=== PATIENT | female | born 1935 | race Hispanic/Latino ===

== ENCOUNTER 2018-05-04 11:49 | Observation (INO) | payer OTHER, SELFPAY ==
[2018-05-04] VITALS (8 sets, daily range): BP systolic 157–186; BP diastolic 59–97; PULSE 61–80; RESP 14–22; TEMP 36.3–36.5; O2SAT 94–99; BMI 27.6
--- NOTE | 2018-05-04 12:18 | ED.DIZZY ---
HPI - Dizziness <EMILI Toro-BC - Last Filed: 05/04/18 17:20> General Chief Complaint: Dizziness Stated Complaint: dizziness, glf Time Seen by Provider: 05/04/18 12:07 Source: patient and family Mode of arrival: ambulatory Limitations: no limitations History of Present Illness HPI Narrative: Patient is an 83-year-old female with history of diastolic heart failure and hypertension who presents after an episode of weakness while getting out of bed today. She also has a history of stroke. She states she felt weak and dizzy and then slid to the floor. She denies any chest pain, shortness of breath, abdominal pain, fever or urinary symptoms. She pressed her Life Alert button and EMS brought her here. She denies any nausea vomiting or diarrhea. She states she took her normal medications this morning. Of note EMS told her she was in AFib does not recall a history of AFib. She denies any slurred speech, neurological changes other than her weakness or hitting her head. Related Data Home Medications Medication Instructions Recorded Confirmed ACETAMINOPHEN 325 mg PO Q4HP PRN #0 02/11/17 amlodipine [Norvasc] 5 mg PO QDAY #0 02/11/17 lidocaine [Lidoderm] 1 patch TOPICAL Q12H #0 02/11/17 oxybutynin chloride 5 mg PO HS #0 02/11/17 Previous Rx's Medication Instructions Recorded furosemide 20 mg PO QAM #30 tab 02/13/17 Allergies Allergy/AdvReac Type Severity Reaction Status Date / Time oxycodone [OXYCODONE] Allergy Intermediate DIZZINESS Verified 05/04/18 12:02 Review of Systems <ADELE Toro - Last Filed: 05/04/18 17:20> Review of Systems GENERAL: Elderly chronically ill-appearing female lying on stretcher HEAD: Atraumatic. Normocephalic. No temporal or scalp tenderness. EYES: Pupils equal round and reactive. Extraocular motions intact. No scleral icterus. No injection or drainage. ENT: Nose without bleeding, purulent drainage or septal hematoma. Throat without erythema, tonsillar hypertrophy or exudate. Uvula midline. Airway patent. NECK: Trachea midline. No JVD or lymphadenopathy. Supple, nontender, no meningeal signs. CARDIOVASCULAR: Irregular rhythm. Regular rate. RESPIRATORY: Diffuse crackles bilateral lower lobes. Breath sounds equal bilaterally. No wheezes, rales, or rhonchi. No increased respiratory effort. No cough noted. No accessory muscle use. GASTROINTESTINAL: Abdomen soft, non-tender, nondistended. No hepato-splenomegaly, or palpable masses. No guarding. EXTREMITIES: No clubbing, cyanosis, or edema. No joint tenderness, effusion, or edema noted. BACK: Nontender without deformity or crepitance. No flank tenderness. NEURO: AOx3. No slurred speech. Strength is equal upper and lower extremities bilaterally. SKIN: No rash or erythema. Exam <PRANAV Toro - Last Filed: 05/04/18 17:20> Initial Vital Signs Initial Vital Signs: Vital Signs Temperature 97.4 F L 05/04/18 11:57 Pulse Rate 77 05/04/18 11:57 Respiratory Rate 18 05/04/18 11:57 Blood Pressure 186/97 H 05/04/18 11:57 Pulse Oximetry 99 05/04/18 11:57 <Pato Hamilton DO - Last Filed: 05/04/18 18:09> Initial Vital Signs Initial Vital Signs: Vital Signs Temperature 97.4 F L 05/04/18 11:57 Pulse Rate 77 05/04/18 11:57 Respiratory Rate 18 05/04/18 11:57 Blood Pressure 186/97 H 05/04/18 11:57 Pulse Oximetry 99 05/04/18 11:57 Course <ADELE Toro - Last Filed: 05/04/18 17:20> Orders Ordered: ED Orders 05/04/18 11:50 EKG-12 Lead Stat 05/04/18 12:18 CT head/brain wo con Stat XR chest 1V Stat 05/04/18 12:20 B Type Natriuretic Peptide Stat Complete Blood Count AUTO DIFF Stat Comprehensive Metabolic Panel Stat Partial Thromboplastin Time Stat Procalcitonin Urgent Prothrombin Time INR Stat Troponin I Stat 05/04/18 12:40 UA Complete [Urinalysis and Microscopic] Stat Urine Culture Stat 05/04/18 16:55 Education, smoking cessation ONGOING 05/05/18 05:00 Complete Blood Count AUTO DIFF DAILY Comprehensive Metabolic Panel DAILY Procalcitonin Routine 05/05/18 08:00 Chest [XR chest 2V] Routine 05/06/18 05:00 Complete Blood Count AUTO DIFF DAILY Comprehensive Metabolic Panel DAILY 05/07/18 05:00 Complete Blood Count AUTO DIFF DAILY Comprehensive Metabolic Panel DAILY Acetaminophen (Tylenol) 650 mg PO Q6HR PRN PRN Reason: As Needed for Fever/Mild Pain Al Hydrox/Mg Hydrox/Simethicone (Maalox Plus) 30 ml PO Q6HR PRN PRN Reason: Dyspepsia Calcium Carbonate (Tums) 1,000 mg PO Q4HR PRN PRN Reason: Dyspepsia Cefuroxime Axetil (Ceftin) 500 mg PO BID WYATT Furosemide (Lasix) 20 mg PO 0800,1700 WYATT Heparin Sodium (Porcine) (Heparin) 5,000 unit SUBCUT BID WYATT Lisinopril (Zestril) 2.5 mg PO BID WYATT Ondansetron HCl (Zofran Odt) 4 mg PO Q8HR PRN PRN Reason: Nausea And Vomiting Ondansetron HCl (Zofran) 4 mg IV Q8HR PRN PRN Reason: Nausea And Vomiting Discontinued Medications Hydrocodone Bitart/Acetaminophen ([place] 5/325) 2 tab PO NOW ONE Stop: 05/04/18 13:25 Last Admin: 05/04/18 13:37 Dose: 2 tab Furosemide (Lasix) 20 mg IV NOW ONE Stop: 05/04/18 14:31 Last Admin: 05/04/18 14:43 Dose: 20 mg Reevaluation(s) Reevaluation #1: Discussed the reason for delayed imaging. Patient has family at bedside. She is in no apparent distress. Patient is requesting home dose of pain medication for arthritis. Dose verified in previous records. Time: 13:15 Reevaluation #2: Discussed at length with patient and daughter that AFib with found on her history. Time: 14:00 Reevaluation #3: Discussed at length with patient findings on UA, chest x-ray, elevated BNP. Patient is currently on stretcher with no acute distress. Family is at bedside. Discussed dose of Lasix given elevated BNP. Time: 14:30 Consultations Consultation #1: Spoke with Dr. Ozuna regarding admission given elevated BNP, concern for UTI and pneumonia. Dr. Ozuna kindly accepted the patient for admission. Dr. Ozuna stated that he would order antibiotics for this patient and instructed me to hold off on treating her pneumonia, UTI at this point time. Time: 15:00 Vital Signs - 8 hr 05/04/18 11:57 05/04/18 13:11 05/04/18 15:30 Temperature 97.4 F L Pulse Rate 77 80 77 Respiratory Rate 18 16 22 Blood Pressure 186/97 H Blood Pressure [Right Arm] 165/83 H 180/65 H Pulse Oximetry 99 98 96 05/04/18 16:33 05/04/18 17:24 Temperature Pulse Rate 62 65 Respiratory Rate 18 14 Blood Pressure 166/59 H Blood Pressure [Right Arm] 157/60 H Pulse Oximetry 96 94 <Pato Hamilton, DO - Last Filed: 05/04/18 18:09> Orders Ordered: ED Orders 05/04/18 11:50 EKG-12 Lead Stat 05/04/18 12:18 CT head/brain wo con Stat XR chest 1V Stat 05/04/18 12:20 B Type Natriuretic Peptide Stat Complete Blood Count AUTO DIFF Stat Comprehensive Metabolic Panel Stat Partial Thromboplastin Time Stat Procalcitonin Urgent Prothrombin Time INR Stat Troponin I Stat 05/04/18 12:40 UA Complete [Urinalysis and Microscopic] Stat Urine Culture Stat 05/04/18 16:55 Education, smoking cessation ONGOING 05/05/18 05:00 Complete Blood Count AUTO DIFF DAILY Comprehensive Metabolic Panel DAILY Procalcitonin Routine 05/05/18 08:00 Chest [XR chest 2V] Routine 05/06/18 05:00 Complete Blood Count AUTO DIFF DAILY Comprehensive Metabolic Panel DAILY 05/07/18 05:00 Complete Blood Count AUTO DIFF DAILY Comprehensive Metabolic Panel DAILY Acetaminophen (Tylenol) 650 mg PO Q6HR PRN PRN Reason: As Needed for Fever/Mild Pain Al Hydrox/Mg Hydrox/Simethicone (Maalox Plus) 30 ml PO Q6HR PRN PRN Reason: Dyspepsia Calcium Carbonate (Tums) 1,000 mg PO Q4HR PRN PRN Reason: Dyspepsia Cefuroxime Axetil (Ceftin) 500 mg PO BID WYATT Furosemide (Lasix) 20 mg PO 0800,1700 WYATT Heparin Sodium (Porcine) (Heparin) 5,000 unit SUBCUT BID WYATT Lisinopril (Zestril) 2.5 mg PO BID WYATT Ondansetron HCl (Zofran Odt) 4 mg PO Q8HR PRN PRN Reason: Nausea And Vomiting Ondansetron HCl (Zofran) 4 mg IV Q8HR PRN PRN Reason: Nausea And Vomiting Discontinued Medications Hydrocodone Bitart/Acetaminophen ([place] 5/325) 2 tab PO NOW ONE Stop: 05/04/18 13:25 Last Admin: 05/04/18 13:37 Dose: 2 tab Furosemide (Lasix) 20 mg IV NOW ONE Stop: 05/04/18 14:31 Last Admin: 05/04/18 14:43 Dose: 20 mg Vital Signs - 8 hr 05/04/18 11:57 05/04/18 13:11 05/04/18 15:30 Temperature 97.4 F L Pulse Rate 77 80 77 Respiratory Rate 18 16 22 Blood Pressure 186/97 H Blood Pressure [Right Arm] 165/83 H 180/65 H Pulse Oximetry 99 98 96 05/04/18 16:33 05/04/18 17:24 Temperature Pulse Rate 62 65 Respiratory Rate 18 14 Blood Pressure 166/59 H Blood Pressure [Right Arm] 157/60 H Pulse Oximetry 96 94 MDM - Dizziness <EMILI Toro-BC - Last Filed: 05/04/18 17:20> Lab Data Result diagrams: 05/04/18 12:20 05/04/18 12:20 Lab Results 05/04/18 05/04/18 05/04/18 Range/Units 12:20 12:20 12:20 WBC 6.8 (4.5-11.0) X10^3/uL RBC 3.28 L (4.0-5.2) X10^6/uL Hgb 10.4 L (12.0-16.0) g/dL Hct 31.7 L (36-46) % MCV 96.6 (80-100) fL MCH 31.6 (26-34) PG MCHC 32.7 (30-36) % RDW 14.4 (11.6-14.8) % Plt Count 208 (150-400) X10^3/uL Neut % (Auto) 68.3 (50-75) % Lymph % (Auto) 19.0 L (25-40) % [place] % (Auto) 10.0 (3-14) % Eos % (Auto) 1.8 L (2-4) % Baso % (Auto) 0.9 (0-2) % Neut # (Auto) 4600 (3053-8623) /uL PT 12.1 (10.1-12.7) SECONDS INR 1.1 (0.9-1.3) APTT 34 (26.4-36.2) SECONDS Sodium (137-145) mmol/L Potassium (3.4-5.1) mmol/L Chloride (98-107) mmol/L Carbon Dioxide (22-32) mmol/L BUN (7-17) mg/dL Creatinine (0.52-1.04) mg/dL Estimated GFR (>60) mL/min BUN/Creatinine Ratio (6-22) Glucose (80-110) mg/dL Calcium (8.4-10.2) mg/dL Total Bilirubin (0.2-1.3) mg/dL AST (14-36) IU/L ALT (9-52) IU/L Alkaline Phosphatase (38-126) U/L Troponin I 0.025 (0.01-0.034) ng/mL B-Natriuretic Peptide (<100) Total Protein (6.3-8.2) g/dL Albumin (3.5-5.0) g/dL Globulin (1.7-4.1) g/dL Albumin/Globulin Ratio (1.0-2.8) Procalcitonin (<0.5) ng/mL Urine Color Urine Appearance Urine pH (4.5-8.0) Ur Specific Martin (1.000-1.035) Urine Protein (Negative) Urine Glucose (UA) (Normal) g/dL Urine Ketones (NEGATIVE) Urine Occult Blood (Negative) Urine Nitrate (Negative) Urine Bilirubin (NEGATIVE) Urine Urobilinogen (0.2) E.U./dL Ur Leukocyte Esterase (NEGATIVE) Urine RBC (0-5/HPF) Urine WBC (0-5/HPF) Ur Squamous Epith Cells Ur Renal Epithelial Cell Urine Bacteria (None) Ur Culture Indicated? Micro UA Comment 05/04/18 05/04/18 05/04/18 Range/Units 12:20 12:20 12:20 WBC (4.5-11.0) X10^3/uL RBC (4.0-5.2) X10^6/uL Hgb (12.0-16.0) g/dL Hct (36-46) % MCV (80-100) fL MCH (26-34) PG MCHC (30-36) % RDW (11.6-14.8) % Plt Count (150-400) X10^3/uL Neut % (Auto) (50-75) % Lymph % (Auto) (25-40) % [place] % (Auto) (3-14) % Eos % (Auto) (2-4) % Baso % (Auto) (0-2) % Neut # (Auto) (0452-5951) /uL PT (10.1-12.7) SECONDS INR (0.9-1.3) APTT (26.4-36.2) SECONDS Sodium 139 (137-145) mmol/L Potassium 3.9 (3.4-5.1) mmol/L Chloride 104 (98-107) mmol/L Carbon Dioxide 23 (22-32) mmol/L BUN 33 H (7-17) mg/dL Creatinine 1.70 H (0.52-1.04) mg/dL Estimated GFR 28.6 L (>60) mL/min BUN/Creatinine Ratio 19.4 (6-22) Glucose 96 (80-110) mg/dL Calcium 10.6 H (8.4-10.2) mg/dL Total Bilirubin 0.8 (0.2-1.3) mg/dL AST 23 (14-36) IU/L ALT 13 (9-52) IU/L Alkaline Phosphatase 88 (38-126) U/L Troponin I (0.01-0.034) ng/mL B-Natriuretic Peptide 1410.0 H (<100) Total Protein 7.1 (6.3-8.2) g/dL Albumin 4.1 (3.5-5.0) g/dL Globulin 3.0 (1.7-4.1) g/dL Albumin/Globulin Ratio 1.4 (1.0-2.8) Procalcitonin < 0.05 (<0.5) ng/mL Urine Color Urine Appearance Urine pH (4.5-8.0) Ur Specific Martin (1.000-1.035) Urine Protein (Negative) Urine Glucose (UA) (Normal) g/dL Urine Ketones (NEGATIVE) Urine Occult Blood (Negative) Urine Nitrate (Negative) Urine Bilirubin (NEGATIVE) Urine Urobilinogen (0.2) E.U./dL Ur Leukocyte Esterase (NEGATIVE) Urine RBC (0-5/HPF) Urine WBC (0-5/HPF) Ur Squamous Epith Cells Ur Renal Epithelial Cell Urine Bacteria (None) Ur Culture Indicated? Micro UA Comment 05/04/18 Range/Units 12:40 WBC (4.5-11.0) X10^3/uL RBC (4.0-5.2) X10^6/uL Hgb (12.0-16.0) g/dL Hct (36-46) % MCV (80-100) fL MCH (26-34) PG MCHC (30-36) % RDW (11.6-14.8) % Plt Count (150-400) X10^3/uL Neut % (Auto) (50-75) % Lymph % (Auto) (25-40) % [place] % (Auto) (3-14) % Eos % (Auto) (2-4) % Baso % (Auto) (0-2) % Neut # (Auto) (8150-8071) /uL PT (10.1-12.7) SECONDS INR (0.9-1.3) APTT (26.4-36.2) SECONDS Sodium (137-145) mmol/L Potassium (3.4-5.1) mmol/L Chloride (98-107) mmol/L Carbon Dioxide (22-32) mmol/L BUN (7-17) mg/dL Creatinine (0.52-1.04) mg/dL Estimated GFR (>60) mL/min BUN/Creatinine Ratio (6-22) Glucose (80-110) mg/dL Calcium (8.4-10.2) mg/dL Total Bilirubin (0.2-1.3) mg/dL AST (14-36) IU/L ALT (9-52) IU/L Alkaline Phosphatase (38-126) U/L Troponin I (0.01-0.034) ng/mL B-Natriuretic Peptide (<100) Total Protein (6.3-8.2) g/dL Albumin (3.5-5.0) g/dL Globulin (1.7-4.1) g/dL Albumin/Globulin Ratio (1.0-2.8) Procalcitonin (<0.5) ng/mL Urine Color Yellow Urine Appearance Slightly cloudy Urine pH 6.0 (4.5-8.0) Ur Specific Martin 1.010 (1.000-1.035) Urine Protein 2+ H (Negative) Urine Glucose (UA) Negative (Normal) g/dL Urine Ketones Negative (NEGATIVE) Urine Occult Blood Trace-intact (Negative) Urine Nitrate Negative (Negative) Urine Bilirubin Negative (NEGATIVE) Urine Urobilinogen 0.2 (0.2) E.U./dL Ur Leukocyte Esterase 1+ H (NEGATIVE) Urine RBC None seen (0-5/HPF) Urine WBC 1-5/hpf (0-5/HPF) Ur Squamous Epith Cells 1-5 /hpf Ur Renal Epithelial Cell 1-5/hpf Urine Bacteria Many (>30) H (None) Ur Culture Indicated? Specimen cultured Micro UA Comment Not Reportable Imaging Data CT scan - head: Radiologist's impression: [address] [address] [address] Scan Report Signed Patient: Gayathri Becerra CMR#: [id number] : 4Acct:[id number] Age/Sex: 83 / FDate of Service: 05/04/18 Loc: ED Accession Number: [id number] Procedure: CT head/brain wo con Ordering Provider: Shira Smith PROCEDURE: CT HEAD/BRAIN WO CON INDICATIONS: dizziness TECHNIQUE: Noncontrast 4.5 mm thick angled axial sections acquired from the foramen magnum to the vertex, with coronal and sagittal reformats. For radiation dose reduction, the following was used: automated exposure control, adjustment of mA and/or kV according to patient size. COMPARISON: [facility], CT, HEAD WITHOUT CONTRAST, 11/30/2016, 15:32. FINDINGS: Image quality: Excellent. CSF spaces: Basal cisterns are patent. No extra-axial fluid collections. The ventricles are symmetric in size and shape. Brain: No intracranial bleeds or masses. There is low density within the inferior pasha. Moderate chronic left posterolateral frontal lobe infarct is unchanged. There is cerebral volume loss for age, with resultant ventricular and sulcal prominence. There are periventricular and deep white matter chronic small vessel ischemic changes. There is intracranial internal carotid artery atherosclerosis. Skull and face: Calvarium and visualized facial bones appear intact, without suspicious lesions. Sinuses: Visualized sinuses and mastoids are clear. IMPRESSION: 1. Low-density within the inferior pasha, which could indicate artifact, or a subacute infarct. 2. Chronic left frontal lobe infarct. 3. No acute intracranial abnormality. Dictated by: Gasper Greene M.D. on 05/04/2018 at 14:18 Approved by: Gasper Greene M.D. on 05/04/2018 at 14:20 Chest x-ray: Radiologist's impression: [address] [address] XRay Report Signed Patient: Gayathri Becerra CMR#: [id number] : 4Acct:[id number] Age/Sex: 83 / FDate of Service: 05/04/18 Loc: ED Accession Number: [id number] Procedure: XR chest 1V Ordering Provider: Shira Smith PROCEDURE: XR CHEST 1V INDICATIONS: weakness TECHNIQUE: One view of the chest was acquired. COMPARISON: [facility], CHEST 1 VIEW, 02/11/2017, 17:15. FINDINGS: Surgical changes and devices: None. Lungs and pleura: No pleural effusions or pneumothorax. There is mild patchy opacity within the left lung base. Mediastinum: Mediastinal contours appear normal. Heart size is enlarged. Bones and chest wall: No suspicious bony lesions. Overlying soft tissues appear unremarkable. IMPRESSION: Mild left lung base pneumonia. Follow up plain films of the chest are recommended to ensure resolution, and to exclude underlying or central malignancy. Dictated by: Gasper Greene M.D. on 05/04/2018 at 14:11 Approved by: Gasper Greene M.D. on 05/04/2018 at 14:12 [facility] Narrative Medical decision making narrative: Patient presents with acute onset of weakness this morning. A CBC, CMP and UA were performed. A cardiac workup was also done. Patient was found to have an elevated BNP and crackles in her left lower lobe, indicating exacerbation her failure. She was also found to have pneumonia on chest x-ray as well as a UTI. The she was admitted to observation status with telemetry under Dr Ozuna. <Pato Hamilton DO - Last Filed: 05/04/18 18:09> Lab Data Lab Results 05/04/18 05/04/18 05/04/18 Range/Units 12:20 12:20 12:20 WBC 6.8 (4.5-11.0) X10^3/uL RBC 3.28 L (4.0-5.2) X10^6/uL Hgb 10.4 L (12.0-16.0) g/dL Hct 31.7 L (36-46) % MCV 96.6 (80-100) fL MCH 31.6 (26-34) PG MCHC 32.7 (30-36) % RDW 14.4 (11.6-14.8) % Plt Count 208 (150-400) X10^3/uL Neut % (Auto) 68.3 (50-75) % Lymph % (Auto) 19.0 L (25-40) % [place] % (Auto) 10.0 (3-14) % Eos % (Auto) 1.8 L (2-4) % Baso % (Auto) 0.9 (0-2) % Neut # (Auto) 4600 (2718-0501) /uL PT 12.1 (10.1-12.7) SECONDS INR 1.1 (0.9-1.3) APTT 34 (26.4-36.2) SECONDS Sodium (137-145) mmol/L Potassium (3.4-5.1) mmol/L Chloride (98-107) mmol/L Carbon Dioxide (22-32) mmol/L BUN (7-17) mg/dL Creatinine (0.52-1.04) mg/dL Estimated GFR (>60) mL/min BUN/Creatinine Ratio (6-22) Glucose (80-110) mg/dL Calcium (8.4-10.2) mg/dL Total Bilirubin (0.2-1.3) mg/dL AST (14-36) IU/L ALT (9-52) IU/L Alkaline Phosphatase (38-126) U/L Troponin I 0.025 (0.01-0.034) ng/mL B-Natriuretic Peptide (<100) Total Protein (6.3-8.2) g/dL Albumin (3.5-5.0) g/dL Globulin (1.7-4.1) g/dL Albumin/Globulin Ratio (1.0-2.8) Procalcitonin (<0.5) ng/mL Urine Color Urine Appearance Urine pH (4.5-8.0) Ur Specific Martin (1.000-1.035) Urine Protein (Negative) Urine Glucose (UA) (Normal) g/dL Urine Ketones (NEGATIVE) Urine Occult Blood (Negative) Urine Nitrate (Negative) Urine Bilirubin (NEGATIVE) Urine Urobilinogen (0.2) E.U./dL Ur Leukocyte Esterase (NEGATIVE) Urine RBC (0-5/HPF) Urine WBC (0-5/HPF) Ur Squamous Epith Cells Ur Renal Epithelial Cell Urine Bacteria (None) Ur Culture Indicated? Micro UA Comment 05/04/18 05/04/18 05/04/18 Range/Units 12:20 12:20 12:20 WBC (4.5-11.0) X10^3/uL RBC (4.0-5.2) X10^6/uL Hgb (12.0-16.0) g/dL Hct (36-46) % MCV (80-100) fL MCH (26-34) PG MCHC (30-36) % RDW (11.6-14.8) % Plt Count (150-400) X10^3/uL Neut % (Auto) (50-75) % Lymph % (Auto) (25-40) % [place] % (Auto) (3-14) % Eos % (Auto) (2-4) % Baso % (Auto) (0-2) % Neut # (Auto) (1686-3060) /uL PT (10.1-12.7) SECONDS INR (0.9-1.3) APTT (26.4-36.2) SECONDS Sodium 139 (137-145) mmol/L Potassium 3.9 (3.4-5.1) mmol/L Chloride 104 (98-107) mmol/L Carbon Dioxide 23 (22-32) mmol/L BUN 33 H (7-17) mg/dL Creatinine 1.70 H (0.52-1.04) mg/dL Estimated GFR 28.6 L (>60) mL/min BUN/Creatinine Ratio 19.4 (6-22) Glucose 96 (80-110) mg/dL Calcium 10.6 H (8.4-10.2) mg/dL Total Bilirubin 0.8 (0.2-1.3) mg/dL AST 23 (14-36) IU/L ALT 13 (9-52) IU/L Alkaline Phosphatase 88 (38-126) U/L Troponin I (0.01-0.034) ng/mL B-Natriuretic Peptide 1410.0 H (<100) Total Protein 7.1 (6.3-8.2) g/dL Albumin 4.1 (3.5-5.0) g/dL Globulin 3.0 (1.7-4.1) g/dL Albumin/Globulin Ratio 1.4 (1.0-2.8) Procalcitonin < 0.05 (<0.5) ng/mL Urine Color Urine Appearance Urine pH (4.5-8.0) Ur Specific Martin (1.000-1.035) Urine Protein (Negative) Urine Glucose (UA) (Normal) g/dL Urine Ketones (NEGATIVE) Urine Occult Blood (Negative) Urine Nitrate (Negative) Urine Bilirubin (NEGATIVE) Urine Urobilinogen (0.2) E.U./dL Ur Leukocyte Esterase (NEGATIVE) Urine RBC (0-5/HPF) Urine WBC (0-5/HPF) Ur Squamous Epith Cells Ur Renal Epithelial Cell Urine Bacteria (None) Ur Culture Indicated? Micro UA Comment 05/04/ Range/Units 12:40 WBC (4.5-11.0) X10^3/uL RBC (4.0-5.2) X10^6/uL Hgb (12.0-16.0) g/dL Hct (36-46) % MCV (80-100) fL MCH (26-34) PG MCHC (30-36) % RDW (11.6-14.8) % Plt Count (150-400) X10^3/uL Neut % (Auto) (50-75) % Lymph % (Auto) (25-40) % [place] % (Auto) (3-14) % Eos % (Auto) (2-4) % Baso % (Auto) (0-2) % Neut # (Auto) (2571-0854) /uL PT (10.1-12.7) SECONDS INR (0.9-1.3) APTT (26.4-36.2) SECONDS Sodium (137-145) mmol/L Potassium (3.4-5.1) mmol/L Chloride (98-107) mmol/L Carbon Dioxide (22-32) mmol/L BUN (7-17) mg/dL Creatinine (0.52-1.04) mg/dL Estimated GFR (>60) mL/min BUN/Creatinine Ratio (6-22) Glucose (80-110) mg/dL Calcium (8.4-10.2) mg/dL Total Bilirubin (0.2-1.3) mg/dL AST (14-36) IU/L ALT (9-52) IU/L Alkaline Phosphatase (38-126) U/L Troponin I (0.01-0.034) ng/mL B-Natriuretic Peptide (<100) Total Protein (6.3-8.2) g/dL Albumin (3.5-5.0) g/dL Globulin (1.7-4.1) g/dL Albumin/Globulin Ratio (1.0-2.8) Procalcitonin (<0.5) ng/mL Urine Color Yellow Urine Appearance Slightly cloudy Urine pH 6.0 (4.5-8.0) Ur Specific Martin 1.010 (1.000-1.035) Urine Protein 2+ H (Negative) Urine Glucose (UA) Negative (Normal) g/dL Urine Ketones Negative (NEGATIVE) Urine Occult Blood Trace-intact (Negative) Urine Nitrate Negative (Negative) Urine Bilirubin Negative (NEGATIVE) Urine Urobilinogen 0.2 (0.2) E.U./dL Ur Leukocyte Esterase 1+ H (NEGATIVE) Urine RBC None seen (0-5/HPF) Urine WBC 1-5/hpf (0-5/HPF) Ur Squamous Epith Cells 1-5 /hpf Ur Renal Epithelial Cell 1-5/hpf Urine Bacteria Many (>30) H (None) Ur Culture Indicated? Specimen cultured Micro UA Comment Not Reportable Discharge Plan Departure Patient Disposition: Admitted as Observation Clinical Impression: Acute exacerbation of CHF (congestive heart failure), Acute UTI, Pneumonia Discharge Date/Time: 05/04/18 17:25 Interventions: ED Discharge Assessment Last Done: 05/04/18 17:24 Admit Date/Time: 05/04/18 15:10 Admit Provider: Isidro Ozuna <Pato Hamilton DO - Last Filed: 05/04/18 18:09> Cosign ED Attending Cosignature Attestation: I was immediately available in the department for consultation. Documentation has been reviewed. I agree with assessment and plan.
--- NOTE | 2018-05-04 12:23 | ED_ITS ---
HPI - Dizziness <EMILI Toro-BC - Last Filed: 05/04/18 17:20> General Chief Complaint: Dizziness Stated Complaint: dizziness, glf Time Seen by Provider: 05/04/18 12:07 Source: patient and family Mode of arrival: ambulatory Limitations: no limitations History of Present Illness HPI Narrative: Patient is an 83-year-old female with history of diastolic heart failure and hypertension who presents after an episode of weakness while getting out of bed today. She also has a history of stroke. She states she felt weak and dizzy and then slid to the floor. She denies any chest pain, shortness of breath, abdominal pain, fever or urinary symptoms. She pressed her Life Alert button and EMS brought her here. She denies any nausea vomiting or diarrhea. She states she took her normal medications this morning. Of note EMS told her she was in AFib does not recall a history of AFib. She denies any slurred speech, neurological changes other than her weakness or hitting her head. Related Data Home Medications Medication Instructions Recorded Confirmed ACETAMINOPHEN 325 mg PO Q4HP PRN #0 02/11/17 amlodipine [Norvasc] 5 mg PO QDAY #0 02/11/17 lidocaine [Lidoderm] 1 patch TOPICAL Q12H #0 02/11/17 oxybutynin chloride 5 mg PO HS #0 02/11/17 Previous Rx's Medication Instructions Recorded furosemide 20 mg PO QAM #30 tab 02/13/17 Allergies Allergy/AdvReac Type Severity Reaction Status Date / Time oxycodone [OXYCODONE] Allergy Intermediate DIZZINESS Verified 05/04/18 12:02 Review of Systems <ADELE Toro - Last Filed: 05/04/18 17:20> Review of Systems GENERAL: Elderly chronically ill-appearing female lying on stretcher HEAD: Atraumatic. Normocephalic. No temporal or scalp tenderness. EYES: Pupils equal round and reactive. Extraocular motions intact. No scleral icterus. No injection or drainage. ENT: Nose without bleeding, purulent drainage or septal hematoma. Throat without erythema, tonsillar hypertrophy or exudate. Uvula midline. Airway patent. NECK: Trachea midline. No JVD or lymphadenopathy. Supple, nontender, no meningeal signs. CARDIOVASCULAR: Irregular rhythm. Regular rate. RESPIRATORY: Diffuse crackles bilateral lower lobes. Breath sounds equal bilaterally. No wheezes, rales, or rhonchi. No increased respiratory effort. No cough noted. No accessory muscle use. GASTROINTESTINAL: Abdomen soft, non-tender, nondistended. No hepato-splenomegaly , or palpable masses. No guarding. EXTREMITIES: No clubbing, cyanosis, or edema. No joint tenderness, effusion, or edema noted. BACK: Nontender without deformity or crepitance. No flank tenderness. NEURO: AOx3. No slurred speech. Strength is equal upper and lower extremities bilaterally. SKIN: No rash or erythema. Exam <PRANAV Toro - Last Filed: 05/04/18 17:20> Initial Vital Signs Initial Vital Signs: Vital Signs Temperature 97.4 F L 05/04/18 11:57 Pulse Rate 77 05/04/18 11:57 Respiratory Rate 18 05/04/18 11:57 Blood Pressure 186/97 H 05/04/18 11:57 Pulse Oximetry 99 05/04/18 11:57 <Pato Hamilton DO - Last Filed: 05/04/18 18:09> Initial Vital Signs Initial Vital Signs: Vital Signs Temperature 97.4 F L 05/04/18 11:57 Pulse Rate 77 05/04/18 11:57 Respiratory Rate 18 05/04/18 11:57 Blood Pressure 186/97 H 05/04/18 11:57 Pulse Oximetry 99 05/04/18 11:57 Course <ADELE Toro - Last Filed: 05/04/18 17:20> Orders Ordered: ED Orders 05/04/18 11:50 EKG-12 Lead Stat 05/04/18 12:18 CT head/brain wo con Stat XR chest 1V Stat 05/04/18 12:20 B Type Natriuretic Peptide Stat Complete Blood Count AUTO DIFF Stat Comprehensive Metabolic Panel Stat Partial Thromboplastin Time Stat Procalcitonin Urgent Prothrombin Time INR Stat Troponin I Stat 05/04/18 12:40 UA Complete [Urinalysis and Microscopic] Stat Urine Culture Stat 05/04/18 16:55 Education, smoking cessation ONGOING 05/05/18 05:00 Complete Blood Count AUTO DIFF DAILY Comprehensive Metabolic Panel DAILY Procalcitonin Routine 05/05/18 08:00 Chest [XR chest 2V] Routine 05/06/18 05:00 Complete Blood Count AUTO DIFF DAILY Comprehensive Metabolic Panel DAILY 05/07/18 05:00 Complete Blood Count AUTO DIFF DAILY Comprehensive Metabolic Panel DAILY Acetaminophen (Tylenol) 650 mg PO Q6HR PRN PRN Reason: As Needed for Fever/Mild Pain Al Hydrox/Mg Hydrox/Simethicone (Maalox Plus) 30 ml PO Q6HR PRN PRN Reason: Dyspepsia Calcium Carbonate (Tums) 1,000 mg PO Q4HR PRN PRN Reason: Dyspepsia Cefuroxime Axetil (Ceftin) 500 mg PO BID WYATT Furosemide (Lasix) 20 mg PO 0800,1700 WYATT Heparin Sodium (Porcine) (Heparin) 5,000 unit SUBCUT BID WYATT Lisinopril (Zestril) 2.5 mg PO BID WYATT Ondansetron HCl (Zofran Odt) 4 mg PO Q8HR PRN PRN Reason: Nausea And Vomiting Ondansetron HCl (Zofran) 4 mg IV Q8HR PRN PRN Reason: Nausea And Vomiting Discontinued Medications Hydrocodone Bitart/Acetaminophen ([place] 5/325) 2 tab PO NOW ONE Stop: 05/04/18 13:25 Last Admin: 05/04/18 13:37 Dose: 2 tab Furosemide (Lasix) 20 mg IV NOW ONE Stop: 05/04/18 14:31 Last Admin: 05/04/18 14:43 Dose: 20 mg Reevaluation(s) Reevaluation #1: Discussed the reason for delayed imaging. Patient has family at bedside. She is in no apparent distress. Patient is requesting home dose of pain medication for arthritis. Dose verified in previous records. Time: 13:15 Reevaluation #2: Discussed at length with patient and daughter that AFib with found on her history. Time: 14:00 Reevaluation #3: Discussed at length with patient findings on UA, chest x-ray, elevated BNP. Patient is currently on stretcher with no acute distress. Family is at bedside. Discussed dose of Lasix given elevated BNP. Time: 14:30 Consultations Consultation #1: Spoke with Dr. Ozuna regarding admission given elevated BNP, concern for UTI and pneumonia. Dr. Ozuna kindly accepted the patient for admission. Dr. Ozuna stated that he would order antibiotics for this patient and instructed me to hold off on treating her pneumonia, UTI at this point time. Time: 15:00 Vital Signs - 8 hr 05/04/18 11:57 05/04/18 13:11 05/04/18 15:30 Temperature 97.4 F L Pulse Rate 77 80 77 Respiratory Rate 18 16 22 Blood Pressure 186/97 H Blood Pressure [Right Arm] 165/83 H 180/65 H Pulse Oximetry 99 98 96 05/04/18 16:33 05/04/18 17:24 Temperature Pulse Rate 62 65 Respiratory Rate 18 14 Blood Pressure 166/59 H Blood Pressure [Right Arm] 157/60 H Pulse Oximetry 96 94 <Pato Hamilton, DO - Last Filed: 05/04/18 18:09> Orders Ordered: ED Orders 05/04/18 11:50 EKG-12 Lead Stat 05/04/18 12:18 CT head/brain wo con Stat XR chest 1V Stat 05/04/18 12:20 B Type Natriuretic Peptide Stat Complete Blood Count AUTO DIFF Stat Comprehensive Metabolic Panel Stat Partial Thromboplastin Time Stat Procalcitonin Urgent Prothrombin Time INR Stat Troponin I Stat 05/04/18 12:40 UA Complete [Urinalysis and Microscopic] Stat Urine Culture Stat 05/04/18 16:55 Education, smoking cessation ONGOING 05/05/18 05:00 Complete Blood Count AUTO DIFF DAILY Comprehensive Metabolic Panel DAILY Procalcitonin Routine 05/05/18 08:00 Chest [XR chest 2V] Routine 05/06/18 05:00 Complete Blood Count AUTO DIFF DAILY Comprehensive Metabolic Panel DAILY 05/07/18 05:00 Complete Blood Count AUTO DIFF DAILY Comprehensive Metabolic Panel DAILY Acetaminophen (Tylenol) 650 mg PO Q6HR PRN PRN Reason: As Needed for Fever/Mild Pain Al Hydrox/Mg Hydrox/Simethicone (Maalox Plus) 30 ml PO Q6HR PRN PRN Reason: Dyspepsia Calcium Carbonate (Tums) 1,000 mg PO Q4HR PRN PRN Reason: Dyspepsia Cefuroxime Axetil (Ceftin) 500 mg PO BID WYATT Furosemide (Lasix) 20 mg PO 0800,1700 WYATT Heparin Sodium (Porcine) (Heparin) 5,000 unit SUBCUT BID WYATT Lisinopril (Zestril) 2.5 mg PO BID WYATT Ondansetron HCl (Zofran Odt) 4 mg PO Q8HR PRN PRN Reason: Nausea And Vomiting Ondansetron HCl (Zofran) 4 mg IV Q8HR PRN PRN Reason: Nausea And Vomiting Discontinued Medications Hydrocodone Bitart/Acetaminophen ([place] 5/325) 2 tab PO NOW ONE Stop: 05/04/18 13:25 Last Admin: 05/04/18 13:37 Dose: 2 tab Furosemide (Lasix) 20 mg IV NOW ONE Stop: 05/04/18 14:31 Last Admin: 05/04/18 14:43 Dose: 20 mg Vital Signs - 8 hr 05/04/18 11:57 05/04/18 13:11 05/04/18 15:30 Temperature 97.4 F L Pulse Rate 77 80 77 Respiratory Rate 18 16 22 Blood Pressure 186/97 H Blood Pressure [Right Arm] 165/83 H 180/65 H Pulse Oximetry 99 98 96 05/04/18 16:33 05/04/18 17:24 Temperature Pulse Rate 62 65 Respiratory Rate 18 14 Blood Pressure 166/59 H Blood Pressure [Right Arm] 157/60 H Pulse Oximetry 96 94 MDM - Dizziness <EMILI Toro-BC - Last Filed: 05/04/18 17:20> Lab Data Result diagrams: 05/04/18 12:20 05/04/18 12:20 Lab Results 05/04/18 05/04/18 05/04/18 Range/Units 12:20 12:20 12:20 WBC 6.8 (4.5-11.0) X10^3/uL RBC 3.28 L (4.0-5.2) X10^6/uL Hgb 10.4 L (12.0-16.0) g/dL Hct 31.7 L (36-46) % MCV 96.6 (80-100) fL MCH 31.6 (26-34) PG MCHC 32.7 (30-36) % RDW 14.4 (11.6-14.8) % Plt Count 208 (150-400) X10^3/uL Neut % (Auto) 68.3 (50-75) % Lymph % (Auto) 19.0 L (25-40) % [place] % (Auto) 10.0 (3-14) % Eos % (Auto) 1.8 L (2-4) % Baso % (Auto) 0.9 (0-2) % Neut # (Auto) 4600 (4505-3007) /uL PT 12.1 (10.1-12.7) SECONDS INR 1.1 (0.9-1.3) APTT 34 (26.4-36.2) SECONDS Sodium (137-145) mmol/L Potassium (3.4-5.1) mmol/L Chloride (98-107) mmol/L Carbon Dioxide (22-32) mmol/L BUN (7-17) mg/dL Creatinine (0.52-1.04) mg/dL Estimated GFR (>60) mL/min BUN/Creatinine Ratio (6-22) Glucose (80-110) mg/dL Calcium (8.4-10.2) mg/dL Total Bilirubin (0.2-1.3) mg/dL AST (14-36) IU/L ALT (9-52) IU/L Alkaline Phosphatase (38-126) U/L Troponin I 0.025 (0.01-0.034) ng/mL B-Natriuretic Peptide (<100) Total Protein (6.3-8.2) g/dL Albumin (3.5-5.0) g/dL Globulin (1.7-4.1) g/dL Albumin/Globulin Ratio (1.0-2.8) Procalcitonin (<0.5) ng/mL Urine Color Urine Appearance Urine pH (4.5-8.0) Ur Specific [place] (1.000-1.035) Urine Protein (Negative) Urine Glucose (UA) (Normal) g/dL Urine Ketones (NEGATIVE) Urine Occult Blood (Negative) Urine Nitrate (Negative) Urine Bilirubin (NEGATIVE) Urine Urobilinogen (0.2) E.U./dL Ur Leukocyte Esterase (NEGATIVE) Urine RBC (0-5/HPF) Urine WBC (0-5/HPF) Ur Squamous Epith Cells Ur Renal Epithelial Cell Urine Bacteria (None) Ur Culture Indicated? Micro UA Comment 05/04/18 05/04/18 05/04/18 Range/Units 12:20 12:20 12:20 WBC (4.5-11.0) X10^3/uL RBC (4.0-5.2) X10^6/uL Hgb (12.0-16.0) g/dL Hct (36-46) % MCV (80-100) fL MCH (26-34) PG MCHC (30-36) % RDW (11.6-14.8) % Plt Count (150-400) X10^3/uL Neut % (Auto) (50-75) % Lymph % (Auto) (25-40) % [place] % (Auto) (3-14) % Eos % (Auto) (2-4) % Baso % (Auto) (0-2) % Neut # (Auto) (1569-0089) /uL PT (10.1-12.7) SECONDS INR (0.9-1.3) APTT (26.4-36.2) SECONDS Sodium 139 (137-145) mmol/L Potassium 3.9 (3.4-5.1) mmol/L Chloride 104 (98-107) mmol/L Carbon Dioxide 23 (22-32) mmol/L BUN 33 H (7-17) mg/dL Creatinine 1.70 H (0.52-1.04) mg/dL Estimated GFR 28.6 L (>60) mL/min BUN/Creatinine Ratio 19.4 (6-22) Glucose 96 (80-110) mg/dL Calcium 10.6 H (8.4-10.2) mg/dL Total Bilirubin 0.8 (0.2-1.3) mg/dL AST 23 (14-36) IU/L ALT 13 (9-52) IU/L Alkaline Phosphatase 88 (38-126) U/L Troponin I (0.01-0.034) ng/mL B-Natriuretic Peptide 1410.0 H (<100) Total Protein 7.1 (6.3-8.2) g/dL Albumin 4.1 (3.5-5.0) g/dL Globulin 3.0 (1.7-4.1) g/dL Albumin/Globulin Ratio 1.4 (1.0-2.8) Procalcitonin < 0.05 (<0.5) ng/mL Urine Color Urine Appearance Urine pH (4.5-8.0) Ur Specific [place] (1.000-1.035) Urine Protein (Negative) Urine Glucose (UA) (Normal) g/dL Urine Ketones (NEGATIVE) Urine Occult Blood (Negative) Urine Nitrate (Negative) Urine Bilirubin (NEGATIVE) Urine Urobilinogen (0.2) E.U./dL Ur Leukocyte Esterase (NEGATIVE) Urine RBC (0-5/HPF) Urine WBC (0-5/HPF) Ur Squamous Epith Cells Ur Renal Epithelial Cell Urine Bacteria (None) Ur Culture Indicated? Micro UA Comment 05/04/18 Range/Units 12:40 WBC (4.5-11.0) X10^3/uL RBC (4.0-5.2) X10^6/uL Hgb (12.0-16.0) g/dL Hct (36-46) % MCV (80-100) fL MCH (26-34) PG MCHC (30-36) % RDW (11.6-14.8) % Plt Count (150-400) X10^3/uL Neut % (Auto) (50-75) % Lymph % (Auto) (25-40) % [place] % (Auto) (3-14) % Eos % (Auto) (2-4) % Baso % (Auto) (0-2) % Neut # (Auto) (3172-4673) /uL PT (10.1-12.7) SECONDS INR (0.9-1.3) APTT (26.4-36.2) SECONDS Sodium (137-145) mmol/L Potassium (3.4-5.1) mmol/L Chloride (98-107) mmol/L Carbon Dioxide (22-32) mmol/L BUN (7-17) mg/dL Creatinine (0.52-1.04) mg/dL Estimated GFR (>60) mL/min BUN/Creatinine Ratio (6-22) Glucose (80-110) mg/dL Calcium (8.4-10.2) mg/dL Total Bilirubin (0.2-1.3) mg/dL AST (14-36) IU/L ALT (9-52) IU/L Alkaline Phosphatase (38-126) U/L Troponin I (0.01-0.034) ng/mL B-Natriuretic Peptide (<100) Total Protein (6.3-8.2) g/dL Albumin (3.5-5.0) g/dL Globulin (1.7-4.1) g/dL Albumin/Globulin Ratio (1.0-2.8) Procalcitonin (<0.5) ng/mL Urine Color Yellow Urine Appearance Slightly cloudy Urine pH 6.0 (4.5-8.0) Ur Specific [place] 1.010 (1.000-1.035) Urine Protein 2+ H (Negative) Urine Glucose (UA) Negative (Normal) g/dL Urine Ketones Negative (NEGATIVE) Urine Occult Blood Trace-intact (Negative) Urine Nitrate Negative (Negative) Urine Bilirubin Negative (NEGATIVE) Urine Urobilinogen 0.2 (0.2) E.U./dL Ur Leukocyte Esterase 1+ H (NEGATIVE) Urine RBC None seen (0-5/HPF) Urine WBC 1-5/hpf (0-5/HPF) Ur Squamous Epith Cells 1-5 /hpf Ur Renal Epithelial Cell 1-5/hpf Urine Bacteria Many (>30) H (None) Ur Culture Indicated? Specimen cultured Micro UA Comment Not Reportable Imaging Data CT scan - head: Radiologist's impression: [address] [address] [address] Scan Report Signed Patient: Gayathri Becerra CMR#: [id number] : 4Acct:[id number] Age/Sex: 83 / FDate of Service: 05/04/18 Loc: ED Accession Number: [id number] Procedure: CT head/brain wo con Ordering Provider: Shira Smith PROCEDURE: CT HEAD/BRAIN WO CON INDICATIONS: dizziness TECHNIQUE: Noncontrast 4.5 mm thick angled axial sections acquired from the foramen magnum to the vertex, with coronal and sagittal reformats. For radiation dose reduction, the following was used: automated exposure control, adjustment of mA and/or kV according to patient size. COMPARISON: [facility], CT, HEAD WITHOUT CONTRAST, 11/30/2016, 15:32. FINDINGS: Image quality: Excellent. CSF spaces: Basal cisterns are patent. No extra-axial fluid collections. The ventricles are symmetric in size and shape. Brain: No intracranial bleeds or masses. There is low density within the inferior pasha. Moderate chronic left posterolateral frontal lobe infarct is unchanged. There is cerebral volume loss for age, with resultant ventricular and sulcal prominence. There are periventricular and deep white matter chronic small vessel ischemic changes. There is intracranial internal carotid artery atherosclerosis. Skull and face: Calvarium and visualized facial bones appear intact, without suspicious lesions. Sinuses: Visualized sinuses and mastoids are clear. IMPRESSION: 1. Low-density within the inferior pasha, which could indicate artifact, or a subacute infarct. 2. Chronic left frontal lobe infarct. 3. No acute intracranial abnormality. Dictated by: Gasper Greene M.D. on 05/04/2018 at 14:18 Approved by: Gasper Greene M.D. on 05/04/2018 at 14:20 Chest x-ray: Radiologist's impression: [address] [address] XRay Report Signed Patient: Gayathri Becerra CMR#: [id number] : 4Acct:[id number] Age/Sex: 83 / FDate of Service: 05/04/18 Loc: ED Accession Number: [id number] Procedure: XR chest 1V Ordering Provider: Shira Smith PROCEDURE: XR CHEST 1V INDICATIONS: weakness TECHNIQUE: One view of the chest was acquired. COMPARISON: [facility], CHEST 1 VIEW, 02/11/2017, 17:15. FINDINGS: Surgical changes and devices: None. Lungs and pleura: No pleural effusions or pneumothorax. There is mild patchy opacity within the left lung base. Mediastinum: Mediastinal contours appear normal. Heart size is enlarged. Bones and chest wall: No suspicious bony lesions. Overlying soft tissues appear unremarkable. IMPRESSION: Mild left lung base pneumonia. Follow up plain films of the chest are recommended to ensure resolution, and to exclude underlying or central malignancy. Dictated by: Gasper Greene M.D. on 05/04/2018 at 14:11 Approved by: Gasper Greene M.D. on 05/04/2018 at 14:12 [facility] Narrative Medical decision making narrative: Patient presents with acute onset of weakness this morning. A CBC, CMP and UA were performed. A cardiac workup was also done. Patient was found to have an elevated BNP and crackles in her left lower lobe, indicating exacerbation her failure. She was also found to have pneumonia on chest x-ray as well as a UTI. The she was admitted to observation status with telemetry under Dr Ozuna. <Pato Hamilton DO - Last Filed: 05/04/18 18:09> Lab Data Lab Results 05/04/18 05/04/18 05/04/18 Range/Units 12:20 12:20 12:20 WBC 6.8 (4.5-11.0) X10^3/uL RBC 3.28 L (4.0-5.2) X10^6/uL Hgb 10.4 L (12.0-16.0) g/dL Hct 31.7 L (36-46) % MCV 96.6 (80-100) fL MCH 31.6 (26-34) PG MCHC 32.7 (30-36) % RDW 14.4 (11.6-14.8) % Plt Count 208 (150-400) X10^3/uL Neut % (Auto) 68.3 (50-75) % Lymph % (Auto) 19.0 L (25-40) % [place] % (Auto) 10.0 (3-14) % Eos % (Auto) 1.8 L (2-4) % Baso % (Auto) 0.9 (0-2) % Neut # (Auto) 4600 (8296-4698) /uL PT 12.1 (10.1-12.7) SECONDS INR 1.1 (0.9-1.3) APTT 34 (26.4-36.2) SECONDS Sodium (137-145) mmol/L Potassium (3.4-5.1) mmol/L Chloride (98-107) mmol/L Carbon Dioxide (22-32) mmol/L BUN (7-17) mg/dL Creatinine (0.52-1.04) mg/dL Estimated GFR (>60) mL/min BUN/Creatinine Ratio (6-22) Glucose (80-110) mg/dL Calcium (8.4-10.2) mg/dL Total Bilirubin (0.2-1.3) mg/dL AST (14-36) IU/L ALT (9-52) IU/L Alkaline Phosphatase (38-126) U/L Troponin I 0.025 (0.01-0.034) ng/mL B-Natriuretic Peptide (<100) Total Protein (6.3-8.2) g/dL Albumin (3.5-5.0) g/dL Globulin (1.7-4.1) g/dL Albumin/Globulin Ratio (1.0-2.8) Procalcitonin (<0.5) ng/mL Urine Color Urine Appearance Urine pH (4.5-8.0) Ur Specific [place] (1.000-1.035) Urine Protein (Negative) Urine Glucose (UA) (Normal) g/dL Urine Ketones (NEGATIVE) Urine Occult Blood (Negative) Urine Nitrate (Negative) Urine Bilirubin (NEGATIVE) Urine Urobilinogen (0.2) E.U./dL Ur Leukocyte Esterase (NEGATIVE) Urine RBC (0-5/HPF) Urine WBC (0-5/HPF) Ur Squamous Epith Cells Ur Renal Epithelial Cell Urine Bacteria (None) Ur Culture Indicated? Micro UA Comment 05/04/18 05/04/18 05/04/18 Range/Units 12:20 12:20 12:20 WBC (4.5-11.0) X10^3/uL RBC (4.0-5.2) X10^6/uL Hgb (12.0-16.0) g/dL Hct (36-46) % MCV (80-100) fL MCH (26-34) PG MCHC (30-36) % RDW (11.6-14.8) % Plt Count (150-400) X10^3/uL Neut % (Auto) (50-75) % Lymph % (Auto) (25-40) % [place] % (Auto) (3-14) % Eos % (Auto) (2-4) % Baso % (Auto) (0-2) % Neut # (Auto) (8799-1323) /uL PT (10.1-12.7) SECONDS INR (0.9-1.3) APTT (26.4-36.2) SECONDS Sodium 139 (137-145) mmol/L Potassium 3.9 (3.4-5.1) mmol/L Chloride 104 (98-107) mmol/L Carbon Dioxide 23 (22-32) mmol/L BUN 33 H (7-17) mg/dL Creatinine 1.70 H (0.52-1.04) mg/dL Estimated GFR 28.6 L (>60) mL/min BUN/Creatinine Ratio 19.4 (6-22) Glucose 96 (80-110) mg/dL Calcium 10.6 H (8.4-10.2) mg/dL Total Bilirubin 0.8 (0.2-1.3) mg/dL AST 23 (14-36) IU/L ALT 13 (9-52) IU/L Alkaline Phosphatase 88 (38-126) U/L Troponin I (0.01-0.034) ng/mL B-Natriuretic Peptide 1410.0 H (<100) Total Protein 7.1 (6.3-8.2) g/dL Albumin 4.1 (3.5-5.0) g/dL Globulin 3.0 (1.7-4.1) g/dL Albumin/Globulin Ratio 1.4 (1.0-2.8) Procalcitonin < 0.05 (<0.5) ng/mL Urine Color Urine Appearance Urine pH (4.5-8.0) Ur Specific [place] (1.000-1.035) Urine Protein (Negative) Urine Glucose (UA) (Normal) g/dL Urine Ketones (NEGATIVE) Urine Occult Blood (Negative) Urine Nitrate (Negative) Urine Bilirubin (NEGATIVE) Urine Urobilinogen (0.2) E.U./dL Ur Leukocyte Esterase (NEGATIVE) Urine RBC (0-5/HPF) Urine WBC (0-5/HPF) Ur Squamous Epith Cells Ur Renal Epithelial Cell Urine Bacteria (None) Ur Culture Indicated? Micro UA Comment 05/04/ Range/Units 12:40 WBC (4.5-11.0) X10^3/uL RBC (4.0-5.2) X10^6/uL Hgb (12.0-16.0) g/dL Hct (36-46) % MCV (80-100) fL MCH (26-34) PG MCHC (30-36) % RDW (11.6-14.8) % Plt Count (150-400) X10^3/uL Neut % (Auto) (50-75) % Lymph % (Auto) (25-40) % [place] % (Auto) (3-14) % Eos % (Auto) (2-4) % Baso % (Auto) (0-2) % Neut # (Auto) (2523-0081) /uL PT (10.1-12.7) SECONDS INR (0.9-1.3) APTT (26.4-36.2) SECONDS Sodium (137-145) mmol/L Potassium (3.4-5.1) mmol/L Chloride (98-107) mmol/L Carbon Dioxide (22-32) mmol/L BUN (7-17) mg/dL Creatinine (0.52-1.04) mg/dL Estimated GFR (>60) mL/min BUN/Creatinine Ratio (6-22) Glucose (80-110) mg/dL Calcium (8.4-10.2) mg/dL Total Bilirubin (0.2-1.3) mg/dL AST (14-36) IU/L ALT (9-52) IU/L Alkaline Phosphatase (38-126) U/L Troponin I (0.01-0.034) ng/mL B-Natriuretic Peptide (<100) Total Protein (6.3-8.2) g/dL Albumin (3.5-5.0) g/dL Globulin (1.7-4.1) g/dL Albumin/Globulin Ratio (1.0-2.8) Procalcitonin (<0.5) ng/mL Urine Color Yellow Urine Appearance Slightly cloudy Urine pH 6.0 (4.5-8.0) Ur Specific [place] 1.010 (1.000-1.035) Urine Protein 2+ H (Negative) Urine Glucose (UA) Negative (Normal) g/dL Urine Ketones Negative (NEGATIVE) Urine Occult Blood Trace-intact (Negative) Urine Nitrate Negative (Negative) Urine Bilirubin Negative (NEGATIVE) Urine Urobilinogen 0.2 (0.2) E.U./dL Ur Leukocyte Esterase 1+ H (NEGATIVE) Urine RBC None seen (0-5/HPF) Urine WBC 1-5/hpf (0-5/HPF) Ur Squamous Epith Cells 1-5 /hpf Ur Renal Epithelial Cell 1-5/hpf Urine Bacteria Many (>30) H (None) Ur Culture Indicated? Specimen cultured Micro UA Comment Not Reportable Discharge Plan Departure Patient Disposition: Admitted as Observation Clinical Impression: Acute exacerbation of CHF (congestive heart failure), Acute UTI, Pneumonia Discharge Date/Time: 05/04/18 17:25 Interventions: ED Discharge Assessment Last Done: 05/04/18 17:24 Admit Date/Time: 05/04/18 15:10 Admit Provider: Isidro Ozuna <Pato Hamilton DO - Last Filed: 05/04/18 18:09> Cosign ED Attending Cosignature Attestation: I was immediately available in the department for consultation. Documentation has been reviewed. I agree with assessment and plan.
--- NOTE | 2018-05-04 12:30 | PC.NURSE ---
Patient reports restless all night not feeling well or sleeping well. Patient reports up in kitchen to make a cup of coffee with walker. Patient states I may have passed out, next thing I know I was on the floor. Denies hitting her head Sitting in bed shaking denies fever or chills.
[2018-05-04 12:33] LABS: Add Manual Diff / Slide Review NO; Basophils Percent Auto 0.9 % (0-2); Eosinophils Percent Auto 1.8 % (2-4); Hematocrit 31.7 % (36-46); Hemoglobin 10.4 g/dL (12.0-16.0); Mean Corpuscular HGB Conc 32.7 % (30-36); Mean Corpuscular Hemoglobin 31.6 PG (26-34); Mean Corpuscular Volume 96.6 fL (80-100); Neutrophils Absolute Auto 4600 /uL (3000-5900); Neutrophils Percent Auto 68.3 % (50-75); Platelet Count 208 X10^3/uL (150-400); Red Blood Cell Count 3.28 X10^6/uL (4.0-5.2); Red Cell Distribution Width 14.4 % (11.6-14.8); White Blood Cell Count 6.8 X10^3/uL (4.5-11.0)
[2018-05-04 12:39] LABS: INR 1.1 (0.9-1.3); Prothrombin Time 12.1 SECONDS (10.1-12.7)
[2018-05-04 12:41] LABS: PTT Partial Thromboplastin Tim 34 SECONDS (26.4-36.2)
[2018-05-04 12:55] LABS: Troponin I 0.025 ng/mL (0.01-0.034)
[2018-05-04 12:59] LABS: RBC Urine None Seen (0-5/HPF)
[2018-05-04 13:02] LABS: Bilirubin Urine UA NEGATIVE (NEGATIVE); Color Urine UA YELLOW; Glucose Urine UA NEGATIVE (Normal); Ketones Urine UA NEGATIVE (NEGATIVE); Leukocyte Esterase Urine UA 1+ (NEGATIVE); Nitrite Urine UA NEGATIVE (Negative); Occult Blood Urine UA TRACE-INTACT (Negative); Protein Urine UA 2+ (Negative); Urobilinogen Urine UA 0.2 E.U./dL (0.2)
[2018-05-04 13:06] LABS: Alanine Aminotransferase 13 IU/L (9-52); Albumin 4.1 g/dL (3.5-5.0); Albumin Globulin Ratio 1.4 (1.0-2.8); Alkaline Phosphatase 88 U/L (38-126); Aspartate Aminotransferase 23 IU/L (14-36); BUN Creatinine Ratio 19.4 (6-22); Bilirubin Total 0.8 mg/dL (0.2-1.3); Blood Urea Nitrogen 33 mg/dL (7-17); Calcium 10.6 mg/dL (8.4-10.2); Carbon Dioxide 23 mmol/L (22-32); Chloride 104 mmol/L (98-107); Estimated Glomerular Filt Rate 28.6 mL/min (>60); Glucose 96 mg/dL (80-110); HEMOLYSIS < 15 (0-50); Potassium 3.9 mmol/L (3.4-5.1); Sodium 139 mmol/L (137-145); Total Protein 7.1 g/dL (6.3-8.2)
[2018-05-04 13:09] LABS: Appearance Urine UA Slightly Cloudy
[2018-05-04 13:14] LABS: Bacteria Urine Many (>30); Renal Epithelial Cells Urine 1-5/HPF; Squamous Epithelial Cell Urine 1-5 /HPF; WBC Urine 1-5/HPF (0-5/HPF)
[2018-05-04 13:15] LABS: Culture Indicated Urine Specimen Cultured
[2018-05-04] MEDS: HYDROCODONE/ACET 5/325 TABLET 2 TAB PO (13:37)
[2018-05-04] MEDS: FUROSEMIDE 20 MG/2 ML VIAL IV (14:43)
--- NOTE | 2018-05-04 17:04 | PM.HP.1 ---
History of Present Illness Date Patient Seen: 05/04/18 Time Patient Seen: 15:06 Chief complaint: dizziness, glf Narrative: Chief complaint Dizziness History of present illness Patient is a 83 years of age female who notes dizziness for the past month. In the emergency room setting patient is noted to have a BNP of 1410 whereas Previous BNP was 810. ER physician gave the patient 20 mg of Lasix IV. Patient denied having any shortness of breath or chest pain prior to admission. No particular alleviating or aggravating factors noted for her complaint Patient History Comment: Past medical history includes diastolic heart failure. Chronic persistent AFib. Hypertension. Hyperlipidemia. Chronic kidney disease stage IIIB Patient had a stroke 2011 related to carotid artery disease No prior history of cancer nor diabetes Family & Social History Safety & Behavioral: Feels Safe in Current Yes Environment Tobacco & Substance use: Smoking Status Never smoker alcohol intake frequency 0-2 drinks per day Substance Use Type does not use Comment: Social history Patient lives alone locally Patient has lots of friends and family support nearby Surgical history Back Surgery 1985 A bladder surgery 20 years ago Family history Sister had breast cancer Meds Home Medications Medication Instructions Recorded Confirmed Type ACETAMINOPHEN 325 mg PO Q4HP PRN #0 02/11/17 History amlodipine [Norvasc] 5 mg PO QDAY #0 02/11/17 History lidocaine [Lidoderm] 1 patch TOPICAL Q12H #0 02/11/17 History oxybutynin chloride 5 mg PO HS #0 02/11/17 History furosemide 20 mg PO QAM #30 tab 02/13/17 Rx Allergies Allergy/AdvReac Type Severity Reaction Status Date / Time oxycodone [OXYCODONE] Allergy Intermediate DIZZINESS Verified 05/04/18 12:02 Review of Systems Review of Systems Ten point system review was negative except for the complaint of the dizziness Exam Vital Signs (past 8 hours): - 05/04/18 11:57 05/04/18 13:11 05/04/18 15:30 Temperature 97.4 F L Pulse Rate 77 80 77 Respiratory Rate 18 16 22 Blood Pressure 186/97 H Blood Pressure [Right Arm] 165/83 H 180/65 H Pulse Oximetry 99 98 96 05/04/18 16:33 Temperature Pulse Rate 62 Respiratory Rate 18 Blood Pressure Blood Pressure [Right Arm] 157/60 H Pulse Oximetry 96 Oxygen Delivery Method Room Air Narrative Exam Narrative: General appearance patient is awake and alert no apparent distress Psychiatric well oriented to time place and person mood is pleasant affect is appropriate family at bedside Skin atrophic noted dry nonjaundiced no dermatitis noted Eyes pupils are equal round and reactive to light Ears nose throat hearing is grossly intact nose septum midline no bleeding no oropharyngeal lesions noted Respiratory clear to auscultation no wheezes no crackles Cardiovascular irregular regular rhythm is noted rate control +3 pulses to extremities GI soft nontender positive bowel sounds no masses no lesions no bruits Neurologic neurologic changes cranial nerves 2-12 grossly intact no resting tremor Objective Labs Result Diagrams: 05/04/18 12:20 05/04/18 12:20 Labs: Laboratory Results - last 24 hr 05/04/18 05/04/18 05/04/18 12:20 12:20 12:20 WBC 6.8 RBC 3.28 L Hgb 10.4 L Hct 31.7 L MCV 96.6 MCH 31.6 MCHC 32.7 RDW 14.4 Plt Count 208 Neut % (Auto) 68.3 Lymph % (Auto) 19.0 L [place] % (Auto) 10.0 Eos % (Auto) 1.8 L Baso % (Auto) 0.9 Neut # (Auto) 4600 PT 12.1 INR 1.1 APTT 34 Sodium Potassium Chloride Carbon Dioxide BUN Creatinine Estimated GFR BUN/Creatinine Ratio Glucose Calcium Total Bilirubin AST ALT Alkaline Phosphatase Troponin I 0.025 B-Natriuretic Peptide Total Protein Albumin Globulin Albumin/Globulin Ratio Urine Color Urine Appearance Urine pH Ur Specific [place] Urine Protein Urine Glucose (UA) Urine Ketones Urine Occult Blood Urine Nitrate Urine Bilirubin Urine Urobilinogen Ur Leukocyte Esterase Urine RBC Urine WBC Ur Squamous Epith Cells Ur Renal Epithelial Cell Urine Bacteria Ur Culture Indicated? Micro UA Comment 05/04/18 05/04/18 05/04/18 12:20 12:20 12:40 WBC RBC Hgb Hct MCV MCH MCHC RDW Plt Count Neut % (Auto) Lymph % (Auto) [place] % (Auto) Eos % (Auto) Baso % (Auto) Neut # (Auto) PT INR APTT Sodium 139 Potassium 3.9 Chloride 104 Carbon Dioxide 23 BUN 33 H Creatinine 1.70 H Estimated GFR 28.6 L BUN/Creatinine Ratio 19.4 Glucose 96 Calcium 10.6 H Total Bilirubin 0.8 AST 23 ALT 13 Alkaline Phosphatase 88 Troponin I B-Natriuretic Peptide 1410.0 H Total Protein 7.1 Albumin 4.1 Globulin 3.0 Albumin/Globulin Ratio 1.4 Urine Color Yellow Urine Appearance Slightly cloudy Urine pH 6.0 Ur Specific [place] 1.010 Urine Protein 2+ H Urine Glucose (UA) Negative Urine Ketones Negative Urine Occult Blood Trace-intact Urine Nitrate Negative Urine Bilirubin Negative Urine Urobilinogen 0.2 Ur Leukocyte Esterase 1+ H Urine RBC None seen Urine WBC 1-5/hpf Ur Squamous Epith Cells 1-5 /hpf Ur Renal Epithelial Cell 1-5/hpf Urine Bacteria Many (>30) H Ur Culture Indicated? Specimen cultured Micro UA Comment Not Reportable Assessment & Plan Plan: Assessment/Plan Narrative: Dizziness Patient notes he has been having this dizziness for the past month This may be related to her blood pressure med she takes in the morning with her Lasix As discussed with family will split the lisinopril to 2.5 mg p.o. b.i.d. Diastolic heart failure In view of the BNP of 1410 today and previous baseline of a 10 Will have her Lasix continue at 20 mg p.o. b.i.d instead of once daily Please note that Lasix is not necessarily considered a once a day diuretic anyway. Split the lisinopril to 2.5 mg p.o. b.i.d. instead of 5 mg once in the morning Chronic kidney disease stage IIIB Note patient's serum creatinine on admission is at baseline with a serum creatinine of about 1.7 History of stroke 2011 No residual deficit Other past history includes hypertension and hyperlipidemia As noted splitting the dose of lisinopril to 2.5 b.i.d.. We will continue her other home medications as tolerated Time Spent With Patient Time with patient: Greater than 35 minutes (50 min to admit to observation)
[2018-05-04 17:36] LABS: Procalcitonin < 0.05 ng/mL (<0.5)
--- NOTE | 2018-05-04 18:45 | PC.ADMIT ---
Admission Note: Pt arrived to floor at 1740. Pt asking for coffee. oriented to room and hospital procedures, will teach pt IS use. Pt cooperative. bed alarm on and side rails upx2. belongings and call light within reach. Pt great historian. Pt uses call light and waits for assistance. Pt voided but missed collection chamber. Pt A&Ox4. has a pretty obvious limp with walking. uses walker at home, one provided in room here. will continue to monitor pt for safety.
[2018-05-04] MEDS: LISINOPRIL 5 MG TABLET 2.5 MG PO (21:57)
[2018-05-04] MEDS: HEPARIN 5,000 UNIT/ML VIAL 5000 UNIT SUBCUT (21:57)
[2018-05-04] MEDS: cefUROXime 250 MG TABLET 500 MG PO (21:57)
[2018-05-04] MEDS: GABAPENTIN 600 MG TABLET PO (21:58)
[2018-05-04] MEDS: HYDROCODONE/ACET 10/325 TABLET 1 TAB PO (22:16)
[2018-05-05] VITALS (13 sets, daily range): BP systolic 111–175; BP diastolic 44–116; PULSE 62–102; RESP 16–20; TEMP 36.5–36.8; O2SAT 94–100; BMI 27.4
--- NOTE | 2018-05-05 02:03 | PC.NURSE ---
remained nurse for pt until 0300. Pt uses call light. complains of pain, but has been off home med schedule a bit. Pt uses call light. cooperative. given snacks and some magazines. Pt fell asleep around 0130. will continue to monitor pt for safety.
[2018-05-05] MEDS: HYDROCODONE/ACET 10/325 TABLET 1 TAB PO ×2 (05:18→13:22)
--- NOTE | 2018-05-05 05:25 | PC.NURSE ---
Addendum entered by Coleen Anders R.N. 05/05/18 13:54: Pt taking PO pain control, back into bed from chair. Offloading pressure to buttocks. Bruising to L sacral/coccyx from fall prior to admission. Original Note: Addendum entered by Coleen Anders R.N. 05/05/18 10:24: 0930-Pt up with PT, requires encouragement to be up OOB. My bottom is sore No OA or bruising noted, fragile skin. Offloaded with pillow. Comfort measures provided. Pt would like to know about norco schedule and we will remind Pt Q6h, Call light in reach Original Note: 0300 Assumed care of Pt, resting quietly until 0500, up to BR 1PA, c/o pain chronic arthritis, given [place] per Emar. Pt also reports chest pain since heart attack 3 years ago rating 5/10 dull, seems more R sided chest than L. Does not worsen with exertion, but possibly alleviated with rest at home. Pt requested an EKG during this stay. VSS, I am fine now when reassessed pain.
[2018-05-05 05:59] LABS: Add Manual Diff / Slide Review NO; Basophils Percent Auto 0.8 % (0-2); Eosinophils Percent Auto 3.2 % (2-4); Hemoglobin 10.2 g/dL (12.0-16.0); Lymphocytes Percent Auto 23.3 % (25-40); Mean Corpuscular Hemoglobin 32.1 PG (26-34); Mean Corpuscular Volume 97.2 fL (80-100); Monocytes Percent Auto 8.9 % (3-14); Neutrophils Absolute Auto 3400 /uL (3000-5900); Neutrophils Percent Auto 63.8 % (50-75); Platelet Count 190 X10^3/uL (150-400); Red Blood Cell Count 3.19 X10^6/uL (4.0-5.2); Red Cell Distribution Width 14.8 % (11.6-14.8); White Blood Cell Count 5.4 X10^3/uL (4.5-11.0)
[2018-05-05 06:34] LABS: Alanine Aminotransferase 20 IU/L (9-52); Albumin 3.7 g/dL (3.5-5.0); Albumin Globulin Ratio 1.4 (1.0-2.8); Alkaline Phosphatase 87 U/L (38-126); Aspartate Aminotransferase 20 IU/L (14-36); Bilirubin Total 0.4 mg/dL (0.2-1.3); Blood Urea Nitrogen 40 mg/dL (7-17); Calcium 9.7 mg/dL (8.4-10.2); Carbon Dioxide 25 mmol/L (22-32); Chloride 104 mmol/L (98-107); Estimated Glomerular Filt Rate 23.7 mL/min (>60); Globulin 2.7 g/dL (1.7-4.1); Glucose 114 mg/dL (80-110); HEMOLYSIS < 15 (0-50); Potassium 3.7 mmol/L (3.4-5.1); Sodium 140 mmol/L (137-145); Total Protein 6.4 g/dL (6.3-8.2)
[2018-05-05 06:50] LABS: Procalcitonin < 0.05 ng/mL (<0.5)
--- NOTE | 2018-05-05 08:00 | DI.RAD.S_ITS ---
PROCEDURE: XR CHEST 2V INDICATIONS: follow up on PNA vs ATX TECHNIQUE: 2 views of the chest were acquired. COMPARISON: [facility], CR, XR CHEST 1V, 05/04/2018, 11:56. [facility], CR, CHEST 1 VIEW, 02/11/2017, 17:15. [facility], CR, CHEST 1 VIEW, 11/30/2016, 14:50. FINDINGS: Surgical changes and devices: None. Lungs and pleura: No pleural effusions or pneumothorax. Lungs are hyperexpanded with flattening of the diaphragms on the lateral view. There is a mild interstitial prominence but the appearance is improved from one day ago when pulmonary edema likely was present. Mediastinum: Mediastinal contours are normal. Heart size is mildly enlarged considering the large lung volumes. Bones and chest wall: No suspicious bony abnormalities. Soft tissues appear unremarkable. IMPRESSION: Resolution of what likely was mild pulmonary edema from 05/04/18. Currently there is pulmonary hyperexpansion and a mild degree of chronic interstitial prominence. It is possible that the appearance one day ago was crowding of chronic interstitial prominence due to reduced inspiration. Regardless, pneumonia is not found today. Dictated by: Hernán Aguilar M.D. on 05/05/2018 at 9:12 Approved by: Hernán Aguilar M.D. on 05/05/2018 at 9:14
[2018-05-05] MEDS: HEPARIN 5,000 UNIT/ML VIAL 5000 UNIT SUBCUT ×2 (09:17→20:20)
[2018-05-05] MEDS: SERTRALINE 50 MG TABLET PO (09:19)
[2018-05-05] MEDS: LISINOPRIL 5 MG TABLET 2.5 MG PO ×2 (09:50→20:20)
[2018-05-05] MEDS: FUROSEMIDE 20 MG TABLET PO ×2 (09:50→19:18)
--- NOTE | 2018-05-05 10:21 | PT.IIE ---
Surgical History (Last Updated 05/04/18 @ 18:21 by Karena Greenberg RN) History of bilateral knee replacement (Acute) History of tonsillectomy (Acute) Previous back surgery (Acute) Medical History (Last Updated 05/04/18 @ 18:21 by Karena Greenberg RN) Afib (Acute) CAD (coronary artery disease) (Acute) CHF (congestive heart failure) (Acute) CKD (chronic kidney disease) (Acute) CVA (cerebral vascular accident) (Acute) HTN (hypertension) (Acute) History of hysterectomy (Acute) Hyperlipidemia (Acute) Physical Therapy Inpatient Evaluation/Re-Eval Medical Review Prior Functional Status Medical History Reviewed Yes Diet/Fluid Consistency Regular Communication no known deficits Mobility and Gait mod ind w/ FWW or 2 canes Activities of Daily Living and IADL's drives Prior Functional Level (Other details) endorses occassional falls Social History Household Members none Living Arrangements Apartment/Condo Number of Floors (Floors) One Floor Home Equipment Front Wheel Walker Straight Cane Employment Status Retired Physical Therapy Current Condition Current Condition Evaluation Date 05/05/18 Treatment Diagnosis impaired mobility - imbalance Onset Date ongoing Subjective Physical Therapy Visit Type Type Initial Evaluation Visit Start Time 08:58 Visit Stop Time 09:56 Total Visit Minutes 58 Physical Therapy Visit Comments Patient Comments Pt reports occasional falls resulting with what she is describing as dizziness and legs giving out. Patient Goals go home Therapy Pain Assessment Pain When Pain Assessed At Rest Pain Present Pain Present Pain Reported PT-Bed Mobility Assessment Supine to Sit Supine to Sit Standby Assistance Sit to Supine Sit to Supine Standby Assistance Scooting Scooting to Edge of Bed Standby Assistance PT-Transfer Assessment Sit to and From Stand Sit to and from Stand Standby Assistance Equipment Transfer Assistive Device Gait Belt Front Wheeled Walker Transfers Transfer Destination Chair Transfer Technique walked Transfer Ability Level of Assist Standby Assistance Comments Mobility Comments Pt did not require physical assist but due to BP variability and c/o some dizziness and sensation of wobbly legs once up in standing, close SBA was utilized throughout the session. Pt did not demonstrate any LOB though. Gait Assessment Gait Gait Assistance Required: Standby Assistance Distance (Feet) 20 Assistive Devices Assistive Device Gait Belt Front Wheeled Walker Gait Deviations General Gait Pattern Within Normal Limits Comments Gait Comments Pt did not require physical assist but due to BP variability and c/o some dizziness and sensation of wobbly legs once up in standing, close SBA was utilized throughout the session. Pt did not demonstrate any LOB though. After 10ft pt started to get SOB w/ description of minor chest pain. Pt was returned to chair and RN notified. Stair Climbing Assessment Comments Stair Climbing Comments not tested this session PT-Balance Assessment Sitting Balance and Reactions Static Sitting Balance Ability Normal Dynamic Sitting Balance Ability Normal Standing Balance and Reactions Static Standing Balance Ability Normal Dynamic Standing Balance Ability Good Device Used FWW Orientation Orientation/Cognition Level of Alertness Alert Orientation Name Age Birthday Month Date Year Day of Week Place Situation Language Function Ability No Deficits Noted Safety Awareness Understands Safety Issues Memory Description No Deficits Noted Gross Range of Motion Upper Extremity ROM Assessment Within Functional Limits Lower Extremity ROM Assessment Within Functional Limits Strength Upper Extremity Strength Assessment Within Functional Limits Lower Extremity Strength Assessment Within Functional Limits Physical Therapy Treatment Other Treatments Other Treatment Performed Pt educated to perform LAQ in sitting and marching in place in standing prior to continuing with mobilization to help reduce orthostatic symptoms. PT Summary Assessment and Plan Potential Rehabilitation Potential Good Status of Condition at Evaluation Evolving Summary Impairments Balance Gait Activity Tolerance Assessment Summary Pt presents with significantly decreased activity tolerance and high variability in diastolic BPs with position changes. Pt also described chest pain after walking on 10ft that correlated with increase in SOB. Pt currently requires SBA<>CGA for mobility which is below pt's reported fucntional baseline. Pt does have potential for functional improvement and will benefit from ongoing acute PT with some level of follow-up once out of the hospital. Pt is not safe to return home at this time due to abnormal vital responses to basic mobility. However, once pt is medically ready to discharge from the hospital (improved BP control and no chest pain), then pt will likely be safe to discharge home with HHPT. Goals Bed Mobility Goal Independent Transfer Goal Independent Front Wheeled Walker Gait Goal Independent Front Wheel Walker Gait Distance 50 Frequency of Treatment Frequency Of Treatment Once a Day Treatment Plan Physical Therapy Treatment Plan Transfer Training Gait Training Balance Retraining Discharge Planning Recommendations To Nursing Amount of Assist Needed 1 Person Assist Discharge Recommendations PT Discharge Recommendations Home with Assistance Home Health
--- NOTE | 2018-05-05 11:27 | CM.DANOTE ---
Addendum entered by Camille Sifuentes LPN 05/06/18 11:11: Noted late yesterday that a d/c to home order was in by Dr. Ozuna. See that pt is still here this morning. Will be following. Original Note: Discharge Planning/Care Management DCP: assessment: case received, EMR reviewed and met with pt. Introduced self and role. Pt is an 83 year old female who admitted yesterday afternoon to care of hospitalist team. PCP: Dr. Jayce Tobar Payer: [facility] PT is ordered and, after discussion of case in Team Rounds, OT is added. Checked back in with pt in followup to HH referral (see info in Template, below) and daughter had arrived. She readily agrees with plan and would like to be involved in any discussion with HH so as to advocate for her mother. PT notes several times during discussion: I just have such a hard time remembering things anymore but I so very much want to stay in my own apt if I can. P: home when stable for same. [facility] Discharge Assessment Start: 05/05/18 11:06 Freq: Status: Active Protocol: Document 05/05/18 11:07 ITV (Rec: 05/05/18 11:27 ITV [id number]) Discharge Planning Assessment Advance Directives? No History Provided By Patient Family Member Medical Record Prior Living Arrangements Apartment/Condo Household Members none Type of transporation used prior to Relies on Others admit Comment has been driving a little bit locally out of necessity. Says she thinks it best if someone else can drive. Thus far has occ family help and a mat weaver who comes once a week and her to store. Independent with ADL's Yes: pt does admit she needs more help Is patient alert and oriented? Yes: admits to short term memory due to CVA Needs Assistance With Managing Medications Home Chores / Shopping Comment pt's daughter reports they have looked into [facility] but pt would have to pay 1/2 of her income (social security only) to get assist and she then would be unable to afford to live in her apt. 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 Medicare Choice List Provided Yes SNF/HH Preference [facility]/referral: not all disciplines available [facility] /referral: Susy confirms they can see pt day after d/c and all disciplines are readily available. Pt and daughter are updated. [employer] is faxing referral info to them Whiteboard Updated in Patient Room with Yes name and ext. # of [employer] Handler Review Status In Process Next Review Type Continued Stay Review
--- NOTE | 2018-05-05 17:40 | PM.DS.1 ---
History of Present Illness Date Patient Seen: 05/05/18 Time Patient Seen: 13:40 Chief complaint: dizziness, glf Narrative: Chief complaint Dizziness History of present illness Patient is a 83 years of age female who notes dizziness for the past month. In the emergency room setting patient is noted to have a BNP of 1410 whereas Previous BNP was 810. ER physician gave the patient 20 mg of Lasix IV. Patient denied having any shortness of breath or chest pain prior to admission. No particular alleviating or aggravating factors noted for her complaint Discharge Providers Date of admission: 05/04/18 15:10 Primary care physician: Dejon Escalante MD Consults: 05/04/18 18:12 Consult to Dietitian, Adult Routine Comment: Reason For Exam: reports unexpected weight loss/assessed at risk Consult to Marketing And Communications Officer Routine Comment: 05/05/18 07:37 Consult to Physical Therapy Evaluate & Treat Comment: assess stephany for discharge in AM Today to home Physician Instructions: Evaluate and Treat 05/05/18 10:59 Consult to Home Health Routine Comment: include pt's daughter Joy [phone] in POC Reason For Exam: home health RN/OT/PT/VP COMPLIANCE at d/c Discharge provider: Isidro Ozuna MD Discharge Date: 05/05/18 Summary Discharge Diagnosis: Dizziness Patient notes he has been having this dizziness for the past month This may be related to her blood pressure med she takes in the morning with her Lasix As discussed with family will split the lisinopril to 2.5 mg p.o. b.i.d. This the patient presented with some fluid overload with a BNP much higher than her baseline reported previously I increased the Lasix to 20 mg b.i.d. with prescription on discharge Diastolic heart failure In view of the BNP of 1410 on admission and previous baseline of 810 Will have her Lasix continue at 20 mg p.o. b.i.d instead of once daily Please note that Lasix is not necessarily considered a once a day diuretic anyway. Split the lisinopril to 2.5 mg p.o. b.i.d. instead of 5 mg once in the morning Chronic kidney disease stage IIIB Note patient's serum creatinine on admission is at baseline with a serum creatinine of about 1.7 History of stroke 2011 No residual neurologic deficit Other past history includes hypertension and hyperlipidemia As noted splitting the dose of lisinopril to 2.5 b.i.d.. We will continue her other home medications as tolerated Hospital Course: Patient was admitted to the hospital with this dizziness for the past month. On further questioning by the daughter the symptoms of the the dizziness seemed a bit perplexing. By the time she would see her doctor in the afternoon was no dizziness noted. I suspected patient may have had bit of trouble with the effect of the lisinopril in the morning. I offered to change the Lasix to the evening or just split the dose. Daughter favored cutting the dose in half and taking b.i.d.. So lisinopril dose changed to 2.5 mg p.o. b.i.d. Patient was seen by physical therapy in a.m. on day of discharge in ambulated. Patient was having no dizziness complaint in the morning. Patient was appropriate for discharge to home. Daughter came to take her mother home. Prescriptions were provided for the lisinopril at the b.i.d. dose as well as Lasix at 20 mg b.i.d.. I recommended close follow-up with her primary care in the next 1 week Status at Discharge Cognitive/behavioral status at discharge: Awake and alert no apparent distress well oriented Functional status at discharge: independent ambulation Time Spent with Patient Greater than 30 minutes (35 min) Exam Vital Signs (past 8 hours): - 05/05/18 09:50 05/05/18 09:56 05/05/18 11:45 Temperature 98.1 F Pulse Rate 81 62 Pulse Rate [Orthostatic Lying] 90 Pulse Rate [Orthostatic Sitting] 98 H Pulse Rate [Orthostatic Standing] 102 H Respiratory Rate 18 Blood Pressure 146/92 H 111/45 L Blood Pressure [Orthostatic Lying] 145/81 H Blood Pressure [Orthostatic Sitting] 148/116 H Blood Pressure [Orthostatic Standing] 142/44 H Pulse Oximetry 94 05/05/18 16:17 Temperature 97.7 F Pulse Rate 86 Pulse Rate [Orthostatic Lying] Pulse Rate [Orthostatic Sitting] Pulse Rate [Orthostatic Standing] Respiratory Rate 19 Blood Pressure 163/74 H Blood Pressure [Orthostatic Lying] Blood Pressure [Orthostatic Sitting] Blood Pressure [Orthostatic Standing] Pulse Oximetry Oxygen Delivery Method Room Air Narrative Exam Narrative: Awake and alert no apparent distress well oriented Respiratory fairly clear to auscultation good airflow no wheezes no crackles Cardiovascular regular rate rhythm no murmurs GI is benign soft nontender positive bowel sounds Extremities are warm with no edema no focal neurologic changes Objective Labs Result Diagrams: 05/05/18 05:42 05/05/18 05:42 Labs: Laboratory Results - last 24 hr 05/05/18 05/05/18 05/05/18 05:42 05:42 05:42 WBC 5.4 RBC 3.19 L Hgb 10.2 L Hct 31.0 L MCV 97.2 MCH 32.1 MCHC 33.0 RDW 14.8 Plt Count 190 Neut % (Auto) 63.8 Lymph % (Auto) 23.3 L Marshall % (Auto) 8.9 Eos % (Auto) 3.2 Baso % (Auto) 0.8 Neut # (Auto) 3400 Sodium 140 Potassium 3.7 Chloride 104 Carbon Dioxide 25 BUN 40 H Creatinine 2.00 H Estimated GFR 23.7 L BUN/Creatinine Ratio 20.0 Glucose 114 H Calcium 9.7 Total Bilirubin 0.4 AST 20 ALT 20 Alkaline Phosphatase 87 B-Natriuretic Peptide Total Protein 6.4 Albumin 3.7 Globulin 2.7 Albumin/Globulin Ratio 1.4 Procalcitonin < 0.05 05/05/18 08:42 WBC RBC Hgb Hct MCV MCH MCHC RDW Plt Count Neut % (Auto) Lymph % (Auto) Marshall % (Auto) Eos % (Auto) Baso % (Auto) Neut # (Auto) Sodium Potassium Chloride Carbon Dioxide BUN Creatinine Estimated GFR BUN/Creatinine Ratio Glucose Calcium Total Bilirubin AST ALT Alkaline Phosphatase B-Natriuretic Peptide 723.0 H Total Protein Albumin Globulin Albumin/Globulin Ratio Procalcitonin Discharge Plan Discharge Plan Patient Disposition: Home Discharge Med Rec/Prescriptions Prescriptions: New lisinopril 5 mg Tablet 2.5 mg PO BID Qty: 60 RF: 6 furosemide 20 mg Tablet 20 mg PO 0800,1700 Qty: 60 RF: 5 Continue acetaminophen [Tylenol] 325 mg Capsule 650 mg PO Q6H PRN (Reason: Pain, Mild) Qty: 0 RF: 0 atorvastatin 80 mg Tablet 80 mg PO BEDTIME RF: 0 gabapentin 600 mg Tablet 600 mg PO BEDTIME RF: 0 aspirin 81 mg Tablet,Delayed Release (Dr/Ec) 81 mg PO DAILY RF: 0 ascorbic acid (vitamin C) [Vitamin C] 500 mg Tablet 500 mg PO BID RF: 0 pantoprazole [Protonix] 40 mg Tablet,Delayed Release (Dr/Ec) 40 mg PO BID RF: 0 metoprolol tartrate 50 mg Tablet 50 mg PO BID RF: 0 cyanocobalamin (vitamin B-12) [Vitamin B-12] 2,000 mcg Tablet Extended Release 2,000 mcg PO DAILY RF: 0 sertraline 50 mg Tablet 50 mg PO DAILY RF: 0 cholecalciferol (vitamin D3) [Vitamin D3] 2,000 unit Tablet 2,000 unit PO DAILY RF: 0 hydrocodone-acetaminophen 10-325 mg Tablet 1 tab PO QID PRN (Reason: Pain, Moderate) RF: 0 Discontinued furosemide 20 MG tablet 20 mg PO QAM Qty: 30 RF: 0 lisinopril 5 mg Tablet 5 mg PO DAILY RF: 0 Follow up/Referrals: Dejon Escalante MD [Primary Care Provider] - (appt:05/09 @ 1:45 check in for a 2:00 @ [facility] w/dr escalante [phone] (this is the only available he has at this time) ) Visit Report/Discharge Packet Instructions: Furosemide, Lisinopril Visit Report Forms: Congestive Heart Failure, Stroke Signs & Symptoms Discharge Data Primary Care Provider: Dejon Escalante V Attending Provider: Isidro Ozuna Admit Date/Time: 05/04/18 15:10 Quality VTE Deep Vein Thrombosis/Pulmonary Embolism Present on Admission: No
[2018-05-05] MEDS: GABAPENTIN 600 MG TABLET PO (20:21)
[2018-05-05] MEDS: ATORVASTATIN 20 MG TABLET 80 MG PO (20:21)
--- NOTE | 2018-05-05 22:30 | PC.NURSE ---
Assumed care of pt from outgoing shift. at 1500- pt daughter in room. Pt uses call light and calls appropriately. asking for pain med, but not yet due. Pt cooperative and pleasant. NEW IV started as old IV was very tender and painful for Pt. pt on tele. will continue to monitor. 2200- pt had passed small BM and noted blood to her rectum, jojo red. upon visualization it looks like there may have been a hemorrhoid that was internal and may have ruptured. blood after wiped away was not bleeding continuously. called, no order rec'd for this. will evaluate in AM. order for PO Levaquin for UTI. will continue to monitor.
[2018-05-05] MEDS: levoFLOXacin 250 MG TABLET 500 MG PO (22:57)
[2018-05-06] VITALS (9 sets, daily range): BP systolic 127–149; BP diastolic 68–91; PULSE 85–105; RESP 16–18; TEMP 36.5–36.9; O2SAT 94–99
[2018-05-06] MEDS: HYDROCODONE/ACET 10/325 TABLET 1 TAB PO ×3 (04:59→19:15)
[2018-05-06 06:37] LABS: Add Manual Diff / Slide Review NO; Basophils Percent Auto 0.5 % (0-2); Eosinophils Percent Auto 4.1 % (2-4); Hematocrit 31.2 % (36-46); Hemoglobin 10.4 g/dL (12.0-16.0); Lymphocytes Percent Auto 19.4 % (25-40); Mean Corpuscular HGB Conc 33.3 % (30-36); Mean Corpuscular Volume 96.3 fL (80-100); Neutrophils Absolute Auto 3600 /uL (3000-5900); Platelet Count 191 X10^3/uL (150-400); Red Blood Cell Count 3.24 X10^6/uL (4.0-5.2); Red Cell Distribution Width 14.6 % (11.6-14.8); White Blood Cell Count 5.5 X10^3/uL (4.5-11.0)
[2018-05-06 06:57] LABS: Alanine Aminotransferase 20 IU/L (9-52); Albumin 3.8 g/dL (3.5-5.0); Albumin Globulin Ratio 1.4 (1.0-2.8); Alkaline Phosphatase 98 U/L (38-126); Aspartate Aminotransferase 18 IU/L (14-36); BUN Creatinine Ratio 26.1 (6-22); Bilirubin Total 0.5 mg/dL (0.2-1.3); Blood Urea Nitrogen 47 mg/dL (7-17); Calcium 10.3 mg/dL (8.4-10.2); Carbon Dioxide 24 mmol/L (22-32); Chloride 103 mmol/L (98-107); Estimated Glomerular Filt Rate 26.8 mL/min (>60); Globulin 2.8 g/dL (1.7-4.1); Glucose 102 mg/dL (80-110); HEMOLYSIS < 15 (0-50); Potassium 4.2 mmol/L (3.4-5.1); Sodium 140 mmol/L (137-145); Total Protein 6.6 g/dL (6.3-8.2)
[2018-05-06] MEDS: FUROSEMIDE 20 MG TABLET PO ×2 (07:42→17:25)
[2018-05-06] MEDS: ACETAMINOPHEN 325 MG TABLET 650 MG PO ×2 (07:42→20:30)
[2018-05-06] MEDS: LISINOPRIL 5 MG TABLET 2.5 MG PO ×2 (10:10→22:00)
[2018-05-06] MEDS: HEPARIN 5,000 UNIT/ML VIAL 5000 UNIT SUBCUT ×2 (10:11→21:00)
[2018-05-06] MEDS: SERTRALINE 50 MG TABLET PO (10:18)
[2018-05-06] MEDS: levoFLOXacin 250 MG TABLET 500 MG PO (10:19)
[2018-05-06] MEDS: ONDANSETRON 4 MG/2 ML INJ IV (10:55)
--- NOTE | 2018-05-06 11:18 | PT.IPTN ---
Physical Therapy Treatment Note Physical Therapy Current Condition Current Condition Evaluation Date 05/05/18 Treatment Diagnosis impaired mobility - imbalance Onset Date ongoing Subjective Physical Therapy Visit Type Type Treatment Note Visit Start Time 10:20 Visit Stop Time 10:44 Total Visit Minutes 24 Physical Therapy Visit Comments Patient Comments Pt reports feeling ok this morning, no complaints at beginning of session. Once mobility was initiated pt described feeling weak all over. Therapy Pain Assessment Pain When Pain Assessed At Rest Pain Present Pain Present Denied Pain PT-Bed Mobility Assessment Supine to Sit Supine to Sit Standby Assistance Sit to Supine Sit to Supine Moderate Assistance Scooting Scooting to Edge of Bed Standby Assistance PT-Transfer Assessment Sit to and From Stand Sit to and from Stand Contact Guard Assistance Equipment Transfer Assistive Device Gait Belt Front Wheeled Walker Comments Mobility Comments Pt needing more assist with bed mobility and sit<>stand, was also more unsteady in static stance. Gait Assessment Gait Gait Assistance Required: Minimum Assistance Distance (Feet) 5 Assistive Devices Assistive Device Gait Belt Front Wheeled Walker Comments Gait Comments Pt only able to take a few steps before beginning to dry heave. Pt did not actually vomit, but pt lost balance and required at least mod A to maintain upright positioning. Prior to and after episode of dryheaving pt still required min A for balance/stability. PT-Balance Assessment Sitting Balance and Reactions Static Sitting Balance Ability Normal Dynamic Sitting Balance Ability Good Standing Balance and Reactions Static Standing Balance Ability Fair Dynamic Standing Balance Ability Poor Device Used FWW Orientation Orientation/Cognition Level of Alertness Alert Orientation Name Age Birthday Month Date Year Day of Week Place Situation Language Function Ability No Deficits Noted Safety Awareness Understands Safety Issues Memory Description No Deficits Noted Gross Range of Motion Upper Extremity ROM Assessment Within Functional Limits Lower Extremity ROM Assessment Within Functional Limits Strength Upper Extremity Strength Assessment Within Functional Limits Lower Extremity Strength Assessment Within Functional Limits Physical Therapy Treatment Other Treatments Other Treatment Performed Pt educated to perform LAQ in sitting and marching in place in standing prior to continuing with mobilization to help reduce orthostatic symptoms. PT Summary Assessment and Plan Potential Rehabilitation Potential Fair Status of Condition at Evaluation Evolving Summary Impairments Balance Gait Activity Tolerance Progress Towards Goals Slow Progress due to Medical Issues Assessment Summary Pt's functional mobility quality has declined compared to yesterday. Although orthostatic BP has stabilized, pt needs more assist for balance. Pt also medically unstable as she began dry- heaving after taking a few steps. Pt needed a significant amount of assist to prevent a fall this session. Pt is not safe to discharge home. Patient does have potential for improvement and will benefit from ongoing PT. Due to this functional decline the discharge recommendation has been changed to SNF rehab for daily therapies. Frequency of Treatment Frequency Of Treatment Twice a Day Treatment Plan Physical Therapy Treatment Plan Transfer Training Gait Training Balance Retraining Discharge Planning Recommendations To Nursing Amount of Assist Needed 1 Person Assist Discharge Recommendations PT Discharge Recommendations SNF Rehab
--- NOTE | 2018-05-06 11:44 | CM.DPC ---
Addendum entered by Camille Sifuentes LPN 05/06/18 12:00: [facility] that [facility] update [facility] re the cancellation of the d/c yesterday. Original Note: DCP: continued: checked in with pt and her daughter Joy now after discussing case in Team Rounds and EMR review. Pt was unable to d/c to home yesterday afternoon. She developed some SOB and chest pain during a PT session but rest of the information is a bit unclear. Dr. Arellano is on now as hospitalist today and for the next several days. She has cancelled yesterday's d/c order and will be seeing pt again today. PT today reports that pt was only able to get up and walk 3 feet before she began dry-heaving. Pt is found sitting now in bed, looking pale. Says she is unsure what happened as she was able to get up in the night and mobilize to the bathroom without nausea. She and her daughter wonder if it might be the antibiotic that was started yesterday. Pt has also had some other changes in her medications. OT order is now obtained to so as to have a clearer idea of pt's functional abilities. PT today wonders about possible snf stay for rehab and medical stabilization before home. Joy again elaborates on the [facility] process: she says a full application has been submitted with someone coming to pt's home for assessment more than once and she always has a participation that would be too high for her to continue to live in her apt. Her apt is subsidized by a program set up years ago, per Joy, but the amount is same every year and as rent has increased every year it in no longer much of a subsidy. Both pt and Joy would very much like pt to have a week or 2 at [facility] if [place] would authorize to help her reach hightest level of functional and medical stability and then home with the [facility] services. If [place] will not authorized then plan would be home with the . Pt and Joy are aware that it is far from certain that [place] will ok this but they are hopeful. Will see what Dr. Arellano says after she sees pt and then proceed prn re above possible plan.
--- NOTE | 2018-05-06 15:01 | PM.PN.1 ---
Subjective Date Patient Seen: 05/06/18 Time Patient Seen: 15:01 Interval history: FOLLOW UP ON DIZZINESS/SYNCOPE Patient seen at bedside. Yesterday he was evaluated by PT who recommended SNF for rehab and patient's DC was held. This morning she experienced another episode of dizziness while walking but no LOC or blurry vision. Resolved with rest. Exam Vital Signs (past 8 hours): - 05/06/18 07:50 05/06/18 07:57 05/06/18 10:44 Temperature 97.8 F Pulse Rate 85 Respiratory Rate 18 Blood Pressure 145/68 H Blood Pressure [Orthostatic Lying] 144/76 H Blood Pressure [Orthostatic Sitting] 146/74 H Blood Pressure [Orthostatic Standing] 147/76 H Pulse Oximetry 97 96 05/06/18 11:42 Temperature 98.4 F Pulse Rate 105 H Respiratory Rate 17 Blood Pressure 134/91 H Blood Pressure [Orthostatic Lying] Blood Pressure [Orthostatic Sitting] Blood Pressure [Orthostatic Standing] Pulse Oximetry 98 Oxygen Delivery Method Room Air Narrative Exam Narrative: Gen: NAD, AAOx3 HEENT: PERRLA BL Neck: Supple, no LAD CV: Irregular rhythm, no murmur noted Resp: CTA BL, no wheezing or crackles GI: +BS, soft, nontender MSK: Normal ROM Back: 5in radius bruise on L buttock from previous fall Skin: as above Objective Labs Result Diagrams: 05/06/18 05:45 05/06/18 05:45 Labs: Laboratory Results - last 24 hr 05/05/18 05/06/18 05/06/18 08:42 05:45 05:45 WBC 5.5 RBC 3.24 L Hgb 10.4 L Hct 31.2 L MCV 96.3 MCH 32.0 MCHC 33.3 RDW 14.6 Plt Count 191 Neut % (Auto) 65.0 Lymph % (Auto) 19.4 L [place] % (Auto) 11.0 Eos % (Auto) 4.1 H Baso % (Auto) 0.5 Neut # (Auto) 3600 Sodium 140 Potassium 4.2 Chloride 103 Carbon Dioxide 24 BUN 47 H Creatinine 1.80 H Estimated GFR 26.8 L BUN/Creatinine Ratio 26.1 H Glucose 102 Calcium 10.3 H Total Bilirubin 0.5 AST 18 ALT 20 Alkaline Phosphatase 98 B-Natriuretic Peptide 723.0 H Total Protein 6.6 Albumin 3.8 Globulin 2.8 Albumin/Globulin Ratio 1.4 Assessment & Plan Plan: Assessment/Plan Narrative: 1. Dizziness - persistent, likely due to AFib - PT on board, pending placement to SNF for rehab 2. Afib - HR controlled - Patient is not on anticoagulation at this time - She is high risk for bleed (HASBLED is 3) and also high risk for stroke (CHADS2 is 4) - Patient will think and make a decision regarding anticoagulation - No BB at this time as patient is high risk for low blood pressure 2. Diastolic CHF - In acute exacerbation on admission - S/P Diuresis, now switched to Lasix 20mg BID PO. Continue Lisinopril 2.5mg BID - Monitor UOP 3. CKD Stage III - Stable - Continue Lisinopril 2.5mg BID 4. Hx Ischemic CVA - No residual defecit - Continue atorvastatin 25 min spent evaluating and providing care to patient by me Quality VTE Deep Vein Thrombosis/Pulmonary Embolism Present on Admission: No
[2018-05-06] MEDS: ONDANSETRON 4 MG ODT PO (17:36)
[2018-05-06] MEDS: METOCLOPRAMIDE 10 MG/2 ML INJ IV (19:05)
--- NOTE | 2018-05-06 19:36 | PC.NURSE ---
1600- Pt A/O x3, 95% RA, LS clear, BT upper quads active, lower quads hypoactive, denies nausea at this time. Denies dizziness or lightheadedness. denies any needs at this time. Daughter Joy in room, but to leave soon. LFA SL, SBA to BRP with FWW, and brief. 1730- scheduled lasix 20mg given, 2 min later pt N/V with 25mL emesis, no visual for pill, medicated with zofran 4mg odt. Did not give another 20mg lasix. Reported to Dr. Arellano and RN coordinator, of emesis and pill. Will continue to monitor pt for dyspena, abnormal LS. 1830- pt with N/V 200mL emesis out, new orders for one time Raglan 10mg IVP. At this time ICU called with pt's HR from the one teens to 120's and currently 160, Dr Arellano notified. New orders; DC levoquin, replace with bactrim PO BID will start @ 2100, 05/06. 1900- Pt reports pain 6/10 arthritis, medicated with norco 10mg 1 tab PO.
[2018-05-06] MEDS: GABAPENTIN 600 MG TABLET PO (21:00)
[2018-05-06] MEDS: ATORVASTATIN 20 MG TABLET 80 MG PO (22:00)
[2018-05-06] MEDS: TRIMETH/SULFA 160/800 (DS) TABLET 1 TAB PO (22:00)
[2018-05-07] VITALS (11 sets, daily range): BP systolic 134–149; BP diastolic 61–76; PULSE 80–110; RESP 16–18; TEMP 36.3–37.3; O2SAT 94–98
--- NOTE | 2018-05-07 | DI.RAD.S_ITS ---
PROCEDURE: XR ABDOMEN 1V INDICATIONS: Nausea/vomiting...R/O acute abdominal processes TECHNIQUE: One view of the abdomen acquired. COMPARISON: None. FINDINGS: Surgical changes and devices: None. Bowel: Bowel gas pattern is normal. No evidence of bowel obstruction. No free air seen Soft tissues: No suspicious abdominal calcifications. Visualized solid organ contours appear normal in size. Surgical staple line projecting in the left upper quadrant. There are right upper quadrant clips. Aortic vascular calcifications noted Bones: No suspicious bony lesions. Levoscoliosis noted. There is multilevel discogenic change. Bilateral symmetric scoli sclerosis. Moderate bilateral hip joint degeneration. osis IMPRESSION: No evidence of bowel obstruction. Dictated by: Michael Rutledge M.D. on 05/07/2018 at 15:48 Approved by: Michael Rutledge M.D. on 05/07/2018 at 15:50
[2018-05-07] MEDS: HYDROCODONE/ACET 10/325 TABLET 1 TAB PO ×2 (05:38→18:51)
[2018-05-07 06:23] LABS: Add Manual Diff / Slide Review NO; Basophils Percent Auto 0.5 % (0-2); Eosinophils Percent Auto 3.2 % (2-4); Hematocrit 30.3 % (36-46); Hemoglobin 10.1 g/dL (12.0-16.0); Lymphocytes Percent Auto 26.3 % (25-40); Mean Corpuscular HGB Conc 33.2 % (30-36); Mean Corpuscular Hemoglobin 31.9 PG (26-34); Mean Corpuscular Volume 96.2 fL (80-100); Monocytes Percent Auto 11.5 % (3-14); Neutrophils Absolute Auto 3300 /uL (3000-5900); Neutrophils Percent Auto 58.5 % (50-75); Platelet Count 195 X10^3/uL (150-400); Red Blood Cell Count 3.16 X10^6/uL (4.0-5.2); Red Cell Distribution Width 14.4 % (11.6-14.8); White Blood Cell Count 5.7 X10^3/uL (4.5-11.0)
--- NOTE | 2018-05-07 06:25 | PC.NURSE ---
Pt A&O but forgetful. no nausea, dizziness, or SOB. norco given for joint pain 02/28. btx4 active and passing gas. pt drinking prune juice, last BM 05/03. call light in reach. bed alarm active.
[2018-05-07 06:35] LABS: Alanine Aminotransferase 16 IU/L (9-52); Albumin 3.6 g/dL (3.5-5.0); Albumin Globulin Ratio 1.3 (1.0-2.8); Alkaline Phosphatase 77 U/L (38-126); Aspartate Aminotransferase 17 IU/L (14-36); Bilirubin Total 0.4 mg/dL (0.2-1.3); Blood Urea Nitrogen 52 mg/dL (7-17); Calcium 10.7 mg/dL (8.4-10.2); Carbon Dioxide 25 mmol/L (22-32); Chloride 102 mmol/L (98-107); Estimated Glomerular Filt Rate 23.7 mL/min (>60); Globulin 2.7 g/dL (1.7-4.1); Glucose 97 mg/dL (80-110); HEMOLYSIS < 15 (0-50); Magnesium 1.4 mg/dL (1.6-2.3); Potassium 4.8 mmol/L (3.4-5.1); Sodium 137 mmol/L (137-145); Total Protein 6.3 g/dL (6.3-8.2)
[2018-05-07] MEDS: ONDANSETRON 4 MG ODT PO ×2 (08:31→12:30)
[2018-05-07] MEDS: FUROSEMIDE 20 MG TABLET PO ×2 (08:32→17:04)
[2018-05-07] MEDS: HEPARIN 5,000 UNIT/ML VIAL 5000 UNIT SUBCUT ×2 (09:47→20:54)
--- NOTE | 2018-05-07 09:57 | PC.NURSE ---
Addendum entered by Janet Vaughan R.N. 05/07/18 14:34: GI - after discussion nausea with Dr. Arellano, recommended that pt be given maalox, pt xuan sips. Original Note: Addendum entered by Janet Vaughan R.N. 05/07/18 12:19: GI - Dr. Arellano contacted regarding pt continued nausea, new order rec'd to change the sl zofran to q4 and keep iv order as q8. Original Note: AM NOTE - alert, sitting upright eating breakfast, eggs and spices, reports underlying nausea, removed and left oatmeal, given 4mg SL zofran, ra 96%, hr 82, later when up to br, did have emesis, oral care provided and given sara kitty and crackers, orthostatic vitals with consisiten bp's 135-149/70's, held po meds until feeling better, repositioned, bed alarm set.
--- NOTE | 2018-05-07 10:35 | CM.DPC ---
Addendum entered by Lupe Vale R.N. 05/07/18 10:47: Spoke to patient and gave Medicare Choice list. [facility]. Went spoke to [facility] for a female bed, will fax over clinical notes. Original Note: DCP Cont: Spoke to Andreea Law at [facility], clinical notes were faxed to her. Patient does qualify for skilled care, would have to be discharged by tomorrow. Will speak to patient and provide Medicare list. Lupe Vale RN/In School Suspension Coordinator
--- NOTE | 2018-05-07 11:21 | OT.IP.EVAL ---
Past Medical History (Last Updated 05/04/18 @ 18:21 by Karena Greenberg RN) Afib (Acute) CAD (coronary artery disease) (Acute) CHF (congestive heart failure) (Acute) CKD (chronic kidney disease) (Acute) CVA (cerebral vascular accident) (Acute) HTN (hypertension) (Acute) History of hysterectomy (Acute) Hyperlipidemia (Acute) Surgical History (Last Updated 05/04/18 @ 18:21 by Karena Greenberg RN) History of bilateral knee replacement (Acute) History of tonsillectomy (Acute) Previous back surgery (Acute) Occupational Therapy Inpatient Evaluation/Re-Eval M1 PT/OT-IP Prior Functional Status Start: 05/05/18 08:08 Freq: NEEDED Status: Active Protocol: Document 05/05/18 09:56 RS (Rec: 05/05/18 10:21 RS [id number]) Medical Review Prior Functional Status Medical History Reviewed Yes Diet/Fluid Consistency Regular Communication no known deficits Mobility and Gait mod ind w/ FWW or 2 canes Activities of Daily Living and IADL's drives Prior Functional Level (Other details) endorses occassional falls Social History Household Members none Living Arrangements Apartment/Condo Number of Floors (Floors) One Floor Home Equipment Front Wheel Walker Straight Cane Employment Status Retired M1 PT/OT-IP Prior Functional Status Start: 05/07/18 10:45 Freq: NEEDED Status: Active Protocol: Document 05/07/18 10:46 [facility] (Rec: 05/07/18 11:21 [facility] [id number]) Medical Review Prior Functional Status Medical History Reviewed Yes Diet/Fluid Consistency Regular Communication no known deficits Mobility and Gait mod ind w/ FWW or 2 canes Activities of Daily Living and IADL's drives, however due to recent dizziness does not feel like she can drive. Prior Functional Level (Other details) endorses occassional falls Social History Household Members none Living Arrangements Apartment/Condo Home Environment Standard Height Toilet Tub/Shower Home Equipment Front Wheel Walker Straight Cane Raised Toilet Seat w/Armrests Shower Seat with Backrest Medical Insurance Coding Specialist Grab Bars Near Toilet Grab Bars In Shower Additional Social History Comment Pt lives with her 11 years old cat. Pt has to bend over from her toilet to clean the litter box. M2 OT-IP Current Condition Start: 05/07/18 10:45 Freq: Status: Active Protocol: Document 05/07/18 10:46 [facility] (Rec: 05/07/18 11:21 [facility] [id number]) Occupational Therapy Current Condition Current Condition Evaluation Date 05/07/18 Treatment Diagnosis Dizziness, A-fib, weakness Diagnosis Onset Date 05/04/18 M3 OT- IP Subjective and Pain Start: 05/07/18 10:45 Freq: Status: Active Protocol: Document 05/07/18 10:46 [facility] (Rec: 05/07/18 11:21 [facility] [id number]) OT- Subjective Occupational Therapy Visit Type Type Initial Evaluation Visit Start Time 10:00 Visit Stop Time 10:40 Total Visit Minutes 40 Occupational Therapy Visit Comments Patient Comments Pt feels that she is not ready to go home and feels weak. Pt wanting to go to skilled rehab prior to going home. Patient/Caregiver Goals To go to skilled rehab, looking to get extra help at home and go home. OT Pain Assessment Pain When Pain Assessed At Rest Pain Present Pain Present Denied Pain M4 OT- IP ADL's Start: 05/07/18 10:45 Freq: Status: Active Protocol: Document 05/07/18 10:46 [facility] (Rec: 05/07/18 11:21 [facility] [id number]) OT [id number] Comments OT Self-Feeding Comments Pt needs assist for all set-up of tray due to arthritis in hands. OT ADL-Dressing General Eval Lower Body Dressing Ability Standby Assistance Moderate Assistance Areas Needing Assistance Underpants/Brief Socks Comments OT Dressing Comments Pt able to sit at edge of the bed to baldemar/ doff socks taking her 40 seconds and getting short of breath. Pt needing MODA to stand and assist for balance brief. Comments OT Toileting Comments Pt states recently just started using briefs, wears loose PJ's and not wanting to have BSC at home due to would not be able to empty it on her own. Pt not having to use the bathroom at this time. OT ADL-Bathing Comments OT Bathing Comments Pt states has shower chair with multiple grab bars and HHSP and had been able to do for herself including washing her hair. Pt may benefit from a tub bench to decrease risk of falling while trying to step over the tub to get in. M5 OT- IP IADL's Start: 05/07/18 10:45 Freq: Status: Active Protocol: Document 05/07/18 10:46 [facility] (Rec: 05/07/18 11:21 [facility] [id number]) OT-Instrumental Activities of Daily Living Medication Management Medication Management Comments Pt's daugther sets up her medications for her. Money Management Money Management Comments Pt's daughter pays all her bills. Meal Preparation Meal Preparation Caregiver Provides Assist Meal Preparation Comments Pt's daughter makes meals for her that she heats up otherwise make sandwiches or scrambled eggs. Pt has a stool she uses to eat at the counter and while prepping meals and does not have to carry items in the kitchen Vice President Of Finance Vice President Of Finance Comments Pt has someone come in on for shopping and cleaning. M6 OT- IP Functional Cognition Start: 05/07/18 10:45 Freq: Status: Active Protocol: Document 05/07/18 10:46 [facility] (Rec: 05/07/18 11:21 [facility] [id number]) Cognitive Factors Limiting Selfcare Function Cognitive Ability Level of Alertness Alert Patient Orientation Name Place Situation Attention Span Ability Capable of Focused Attention Capable of Sustained Attention Ability to Follow Commands Able to Follow Multi-Step Commands Memory Description Immediate Intact Rug Clipper Intact Safety Awareness No Deficits Noted Cognitive Comments Cognitive Assessment Comments Pt able to follow directions, appears realistic with her abilities and what she needs assist with at this time. OT- Vision and Hearing OT- Hearing Assessment OT- Hearing Assessment WFL OT- Vision Assessment Visual Acuity Glasses All The Time Vision Assessment Comments Pt states at home does not wear her glasses to get to the bathroom. M7 OT- IP Mobility and Balance Start: 05/07/18 10:45 Freq: Status: Active Protocol: Document 05/07/18 10:46 [facility] (Rec: 05/07/18 11:21 [facility] [id number]) OT- Bed Mobility Assessment Rolling Type of Rolling Roll to Right Level of Assistance Standby Assistance 1 Person Assistance Supine to Sit Supine to Sit Assist Standby Assistance Minimal Assistance 1 Person Assistance Sit to Supine Sit to Supine Assist Minimal Assistance Moderate Assistance 1 Person Assistance OT-Transfer Assessment Sit to and From Stand Sit to and from Stand Moderate Assistance Devices Transfer Assistive Devices Gait Belt Front Wheeled Walker Comments Mobility Comments Pt able to sit to edge of bed first time in 30 seconds and SBA, 2nd time needing MARVIN up and MODA to get back in. Pt easily tires and gets SOB. BP supine 145/95 hr 108, Sitting 138/74 hr 106, standing 151/ 101 hr 136 and having dry heaves throughout the session. Pt not able to perform Sit to STAnd test score zero and Functional reach test score 0 inches which both indicate high fall risk. Pt's nurse notified on high BP and HR. OT- Balance Assessment Sitting Balance and Reactions Static Sitting Balance Ability Good Dynamic Sitting Balance Ability Fair Standing Balance and Reactions Static Standing Balance Ability Fair Dynamic Standing Balance Ability Poor M8 OT- IP Objective Assessments Start: 05/07/18 10:45 Freq: Status: Active Protocol: Document 05/07/18 10:46 [facility] (Rec: 05/07/18 11:21 [facility] [id number]) OT Strength Comments Strength Comments Pt not able to lift arms up only from elbows to distal. BUE strength 3+/5. OT- Coordination Assessment Comments Coordination Comments Pt needing assist for set-up of try items. M9 OT- IP Assessment and Plan Start: 05/07/18 10:45 Freq: Status: Active Protocol: Document 05/07/18 10:46 [facility] (Rec: 05/07/18 11:21 [facility] [id number]) OT Summary Assessment and Plan Potential Rehabilitation Potential Good Analytic Complexity at Evaluation Moderate Summary OT Impairments Range of Motion Strength Balance Coordination Functional Mobility Grooming Dressing Toileting Bathing Toilet Transfers Shower Transfers Progress Towards Goals Slow Progress due to Medical Issues Slow Progress due to Activity Tolerance Assessment Summary Pt MOD complexity and main barrier is weakness, decreased activity tolerance, increased HR and SOB, and now requiring one person assist for Adl and functional mobility needs. Pt in addition is a high fall risk due to poor balance and endurance and would strongly benefit and good candidate for skilled rehab prior to going home. Goals Grooming Goal Independent Dressing Goal Independent Toileting Goal Independent Bathing Goal Standby Assistance Toilet Transfer Goal Independent Shower Transfer Goal Standby Assistance Patient/Caregiver Education Goal Demonstrate Energy Conservation and Pacing Caregiver Independent Assisting Patient OT-Other Goals LTG: See Above STG: Pt to be able to dress/ toilet with SBA and good safety. Days to Meet Goals 7 Frequency of Treatment Frequency Of Treatment Once a Day Treatment Plan OT Treatment Plan ADL Training Functional Cognition Training Functional Mobility Patient/Family Education Discharge Planning Other Treatment Recommendations and Next Activity tolerance with ADL's. Treatment Focus Discharge Recommendations OT Discharge Recommendations SNF Rehab Home Equipment Needs Tub bench
--- NOTE | 2018-05-07 12:15 | PT.IPTN ---
Physical Therapy Treatment Note M2 PT-IP Current Condition Start: 05/05/18 08:08 Freq: NEEDED Status: Active Protocol: Document 05/05/18 09:56 RS (Rec: 05/05/18 10:21 RS [email or web address]) Physical Therapy Current Condition Current Condition Evaluation Date 05/05/18 Treatment Diagnosis impaired mobility - imbalance Onset Date ongoing M3 PT-IP Subjective Start: 05/05/18 08:08 Freq: NEEDED Status: Active Protocol: Document 05/07/18 12:08 SA (Rec: 05/07/18 12:15 SA [id number]) Subjective Physical Therapy Visit Type Type Treatment Note Visit Start Time 11:25 Visit Stop Time 11:40 Total Visit Minutes 15 Notes Pt in bed and agreeable to PT, just had some crackers prior to session. Physical Therapy Visit Comments Patient Comments Pt states nausea is present but willing to attempt sitting up to EOB. Therapy Pain Assessment Pain When Pain Assessed At Rest Pain Present Pain Present Denied Pain M4 PT-IP Mobility and Gait Start: 05/05/18 08:08 Freq: NEEDED Status: Active Protocol: Document 05/07/18 12:08 SA (Rec: 05/07/18 12:15 [id number]) PT-Bed Mobility Assessment Supine to Sit Supine to Sit Contact Guard Assistance Sit to Supine Sit to Supine Minimal Assistance Scooting Scooting to Edge of Bed Standby Assistance PT-Transfer Assessment Comments Mobility Comments Pt sat up at EOB for about 5 min, began vomitting almost at once. Returned to bed. M5 PT-IP Objective Assessments Start: 05/05/18 08:08 Freq: NEEDED Status: Active Protocol: Document 05/05/18 09:56 RS (Rec: 05/05/18 10:21 RS [email or web address]) Orientation Orientation/Cognition Level of Alertness Alert Orientation Name Age Birthday Month Date Year Day of Week Place Situation Language Function Ability No Deficits Noted Safety Awareness Understands Safety Issues Memory Description No Deficits Noted Gross Range of Motion Upper Extremity ROM Assessment Within Functional Limits Lower Extremity ROM Assessment Within Functional Limits Strength Upper Extremity Strength Assessment Within Functional Limits Lower Extremity Strength Assessment Within Functional Limits M6 PT-IP Treatment Start: 05/05/18 08:08 Freq: NEEDED Status: Active Protocol: Document 05/05/18 09:56 RS (Rec: 05/05/18 10:21 RS [email or web address]) Physical Therapy Treatment Other Treatments Other Treatment Performed Pt educated to perform LAQ in sitting and marching in place in standing prior to continuing with mobilization to help reduce orthostatic symptoms. M7 PT-IP Assessment and Plan Start: 05/05/18 08:08 Freq: NEEDED Status: Active Protocol: Document 05/07/18 12:08 (Rec: 05/07/18 12:15 [id number]) PT Summary Assessment and Plan Summary Assessment Summary Pt with continued nausea and increasing assistance with bed mobility and declined standing d/t symptoms. Frequency of Treatment Frequency Of Treatment Twice a Day Recommendations To Nursing Amount of Assist Needed 1 Person Assist Discharge Recommendations PT Discharge Recommendations SNF Rehab
--- NOTE | 2018-05-07 14:04 | PM.PN.1 ---
Subjective Date Patient Seen: 05/07/18 Time Patient Seen: 14:05 Interval history: FOLLOW UP ON DIZZINESS/SYNCOPE Patient seen at bedside. Continues to have nausea episodes. Initially presumed to be due to Levofloxacin, and switched to Bactrim for UTI treatment. Nevertheless patient continues to have thos episodes with NBNB small amounts of vomiting. One episode of Light headedness this morning, brief. Exam Vital Signs (past 8 hours): - 05/07/18 08:30 05/07/18 09:00 05/07/18 10:09 Temperature 97.9 F Pulse Rate 92 H Pulse Rate [Orthostatic Lying] 92 H Pulse Rate [Orthostatic Sitting] 97 H Pulse Rate [Orthostatic Standing] 110 H Respiratory Rate 16 Blood Pressure [Orthostatic Lying] 143/72 H Blood Pressure [Orthostatic Sitting] 149/72 H Blood Pressure [Orthostatic Standing] 135/76 Pulse Oximetry 96 94 96 Oxygen Delivery Method Room Air Oxygen Flow Rate 0 Narrative Exam Narrative: Exam Narrative: Gen: NAD, AAOx3 HEENT: PERRLA BL Neck: Supple, no LAD CV: Irregular rhythm, no murmur noted Resp: CTA BL, no wheezing or crackles GI: +BS, soft, nontender MSK: Normal ROM Back: 5in radius bruise on L buttock from previous fall Skin: as above Objective Labs Result Diagrams: 05/07/18 05:58 05/07/18 05:58 Labs: Laboratory Results - last 24 hr 05/07/18 05/07/18 05:58 05:58 WBC 5.7 RBC 3.16 L Hgb 10.1 L Hct 30.3 L MCV 96.2 MCH 31.9 MCHC 33.2 RDW 14.4 Plt Count 195 Neut % (Auto) 58.5 Lymph % (Auto) 26.3 [place] % (Auto) 11.5 Eos % (Auto) 3.2 Baso % (Auto) 0.5 Neut # (Auto) 3300 Sodium 137 Potassium 4.8 Chloride 102 Carbon Dioxide 25 BUN 52 H Creatinine 2.00 H Estimated GFR 23.7 L BUN/Creatinine Ratio 26.0 H Glucose 97 Calcium 10.7 H Magnesium 1.4 L Total Bilirubin 0.4 AST 17 ALT 16 Alkaline Phosphatase 77 Total Protein 6.3 Albumin 3.6 Globulin 2.7 Albumin/Globulin Ratio 1.3 Assessment & Plan Plan: Assessment/Plan Narrative: 1. Dizziness - improving - persistent, likely due to AFib - PT on board, pending placement to SNF for rehab 2. Afib - HR controlled when patient is resting but goes up to 120s when ambulating - unable to give patient CCB or BB due to borderline low blood pressure - unable to give digoxin given patient's age and CKD - Patient is not on anticoagulation at this time - She is high risk for bleed (HASBLED is 3) and also high risk for stroke (CHADS2 is 4) - Patient will think and make a decision regarding anticoagulation 2. Diastolic CHF - In acute exacerbation on admission - S/P Diuresis, now on Lasix 20mg BID PO. Continue Lisinopril 2.5mg BID - Monitor UOP 3. CKD Stage III - Stable - Cr 2.0 this morning - Continue Lisinopril 2.5mg BID 4. Hx Ischemic CVA - No residual defecit - Continue atorvastatin 5. UTI - Urine cultures grew Klebsiella PNA - Patient was initially on Levaquin however due to nausea has been changed to Bactrim DS 1 tab PO BID 6. Nausea - Zofran isn't helping much - Will get Abd Xray to look for possible source nausea - Maalox PRN 20 min spent evaluating and providing care to patient by me Quality VTE Deep Vein Thrombosis/Pulmonary Embolism Present on Admission: No
[2018-05-07] MEDS: MAG HYDROX/ALUM/SIMETH 30 ML UDC PO (14:33)
--- NOTE | 2018-05-07 14:42 | PT.IPTN ---
Physical Therapy Treatment Note M2 PT-IP Current Condition Start: 05/05/18 08:08 Freq: NEEDED Status: Active Protocol: Document 05/05/18 09:56 RS (Rec: 05/05/18 10:21 RS [email or web address]) Physical Therapy Current Condition Current Condition Evaluation Date 05/05/18 Treatment Diagnosis impaired mobility - imbalance Onset Date ongoing M3 PT-IP Subjective Start: 05/05/18 08:08 Freq: NEEDED Status: Active Protocol: Document 05/07/18 14:29 SA (Rec: 05/07/18 14:42 SA [id number]) Subjective Physical Therapy Visit Type Type Treatment Note Visit Start Time 13:55 Visit Stop Time 14:15 Total Visit Minutes 20 Number of CLASSIFIED AD TAKER Visits 2 Physical Therapy Visit Comments Patient Comments Pt still with c/o nausea and head spinning but willing to participate in light PT. Therapy Pain Assessment Pain When Pain Assessed At Rest Pain Present Pain Present Denied Pain M4 PT-IP Mobility and Gait Start: 05/05/18 08:08 Freq: NEEDED Status: Active Protocol: Document 05/07/18 14:29 SA (Rec: 05/07/18 14:42 [id number]) PT-Bed Mobility Assessment Supine to Sit Supine to Sit Contact Guard Assistance Sit to Supine Sit to Supine Minimal Assistance Scooting Scooting to Edge of Bed Standby Assistance PT-Transfer Assessment Comments Mobility Comments Monitored BP with position changes. Supine 137/67 and sittng at EOB 134/67, HR 90-92 BPM and 02 96% M5 PT-IP Objective Assessments Start: 05/05/18 08:08 Freq: NEEDED Status: Active Protocol: Document 05/05/18 09:56 RS (Rec: 05/05/18 10:21 RS [email or web address]) Orientation Orientation/Cognition Level of Alertness Alert Orientation Name Age Birthday Month Date Year Day of Week Place Situation Language Function Ability No Deficits Noted Safety Awareness Understands Safety Issues Memory Description No Deficits Noted Gross Range of Motion Upper Extremity ROM Assessment Within Functional Limits Lower Extremity ROM Assessment Within Functional Limits Strength Upper Extremity Strength Assessment Within Functional Limits Lower Extremity Strength Assessment Within Functional Limits M6 PT-IP Treatment Start: 05/05/18 08:08 Freq: NEEDED Status: Active Protocol: Document 05/07/18 14:29 SA (Rec: 05/07/18 14:42 SA [id number]) Physical Therapy Treatment Exercises Exercises Ankle Pumps Gluteal Sets Heel Slides Short Arc Quads Education Education Provided Safety M7 PT-IP Assessment and Plan Start: 05/05/18 08:08 Freq: NEEDED Status: Active Protocol: Document 05/07/18 14:29 SA (Rec: 05/07/18 14:42 SA [id number]) PT Summary Assessment and Plan Potential Rehabilitation Potential Fair Status of Condition at Evaluation Evolving Summary Assessment Summary Nursing to follow up with possible Anti-nausea medication as nausea persists. Vestibular consult? Recommendations To Nursing Amount of Assist Needed 1 Person Assist Discharge Recommendations PT Discharge Recommendations SNF Rehab
--- NOTE | 2018-05-07 16:05 | CM.DPC ---
DCP Cont: Spoke to patient and went over Medicare Choice list. Asked her if she would be willing to go to another facility if [facility] has no beds. The facility that she has chosen was [facility]. Called Chichi at [facility], and she asked for clinical notes. Faxed them over. Called and spoke to daughter, Joy. Stated that she would rather have [facility], but if they have no availabilities, she is aware that they need a second choice. Stated that she will do some research on [facility] to check on this facility. Chichi at [facility] stated that they do have availability if it is before 1:00. P: Will re-evaluate tomorrow, first choice is [facility], second would be [facility] is family approves. Lupe Vale RN/Acupuncturist
[2018-05-07] MEDS: GABAPENTIN 600 MG TABLET PO (20:46)
[2018-05-07] MEDS: ATORVASTATIN 20 MG TABLET 80 MG PO (20:46)
[2018-05-07] MEDS: LISINOPRIL 5 MG TABLET 2.5 MG PO (20:47)
[2018-05-07] MEDS: TRIMETH/SULFA 160/800 (DS) TABLET 1 TAB PO (20:48)
[2018-05-07] MEDS: SENNOSIDES 8.6 MG TABLET PO (20:48)
[2018-05-08] VITALS: O2SAT 96
--- NOTE | 2018-05-08 00:49 | PC.NURSE ---
Director Internal Audit Note: 0000: Sleeping, arouses easily. Vital signs stable. Denies dizziness at this time. Saline lock in place in rt forearm.
[2018-05-08 03:00] VITALS: BP 130/70; PULSE 82; RESP 16; TEMP 37.2; O2SAT 95
[2018-05-08] MEDS: HYDROCODONE/ACET 10/325 TABLET 1 TAB PO ×2 (03:52→11:33)
[2018-05-08 06:31] LABS: Add Manual Diff / Slide Review NO; Basophils Percent Auto 0.8 % (0-2); Eosinophils Percent Auto 4.9 % (2-4); Hematocrit 29.6 % (36-46); Hemoglobin 9.7 g/dL (12.0-16.0); Lymphocytes Percent Auto 17.4 % (25-40); Mean Corpuscular HGB Conc 32.7 % (30-36); Mean Corpuscular Hemoglobin 31.7 PG (26-34); Monocytes Percent Auto 11.9 % (3-14); Neutrophils Absolute Auto 3500 /uL (3000-5900); Platelet Count 182 X10^3/uL (150-400); Red Blood Cell Count 3.05 X10^6/uL (4.0-5.2); Red Cell Distribution Width 14.6 % (11.6-14.8); White Blood Cell Count 5.3 X10^3/uL (4.5-11.0)
[2018-05-08 06:36] LABS: Chloride 100 mmol/L (98-107); HEMOLYSIS < 15 (0-50)
[2018-05-08 06:38] LABS: BUN Creatinine Ratio 23.6 (6-22); Blood Urea Nitrogen 59 mg/dL (7-17); Calcium 9.8 mg/dL (8.4-10.2); Carbon Dioxide 24 mmol/L (22-32); Estimated Glomerular Filt Rate 18.3 mL/min (>60); Glucose 98 mg/dL (80-110); Sodium 134 mmol/L (137-145)
[2018-05-08 06:46] LABS: Potassium 5.2 mmol/L (3.4-5.1)
[2018-05-08 07:58] VITALS: BP 154/81; PULSE 95; RESP 20; TEMP 36.3; O2SAT 94
[2018-05-08 08:12] VITALS: O2SAT 94
[2018-05-08] MEDS: FUROSEMIDE 20 MG TABLET PO (08:28)
[2018-05-08] MEDS: HEPARIN 5,000 UNIT/ML VIAL 5000 UNIT SUBCUT (08:28)
[2018-05-08] MEDS: SENNOSIDES 8.6 MG TABLET PO (08:29)
[2018-05-08] MEDS: LISINOPRIL 5 MG TABLET 2.5 MG PO (08:29)
[2018-05-08] MEDS: SERTRALINE 50 MG TABLET PO (08:29)
[2018-05-08] MEDS: ACETAMINOPHEN 325 MG TABLET 650 MG PO (08:29)
[2018-05-08] MEDS: TRIMETH/SULFA 80/400 (SS) TABLET 1 TAB PO (08:29)
--- NOTE | 2018-05-08 11:00 | PT.IPTN ---
Physical Therapy Treatment Note M2 PT-IP Current Condition Start: 05/05/18 08:08 Freq: NEEDED Status: Active Protocol: Document 05/05/18 09:56 RS (Rec: 05/05/18 10:21 RS [email or web address]) Physical Therapy Current Condition Current Condition Evaluation Date 05/05/18 Treatment Diagnosis impaired mobility - imbalance Onset Date ongoing M3 PT-IP Subjective Start: 05/05/18 08:08 Freq: NEEDED Status: Active Protocol: Document 05/08/18 11:00 GGD (Rec: 05/08/18 11:41 GGD [id number]) Subjective Physical Therapy Visit Type Type Treatment Note Visit Start Time 10:40 Visit Stop Time 11:00 Total Visit Minutes 20 Number of OFFICE COORDINATOR Visits 3 Physical Therapy Visit Comments Patient Comments Pt state that she is feeling better, but very weak. Therapy Pain Assessment Pain When Pain Assessed At Rest Pain Present Pain Present Denied Pain M4 PT-IP Mobility and Gait Start: 05/05/18 08:08 Freq: NEEDED Status: Active Protocol: Document 05/08/18 11:00 GGD (Rec: 05/08/18 11:41 GGD [id number]) PT-Bed Mobility Assessment Supine to Sit Supine to Sit Contact Guard Assistance Scooting Scooting to Edge of Bed Standby Assistance PT-Transfer Assessment Sit to and From Stand Sit to and from Stand Minimal Assistance Use of Upper Extremities Equipment Transfer Assistive Device Gait Belt Front Wheeled Walker Transfers Transfer Destination Chair Comments Mobility Comments Pt had LOB with inital standing. Gait Assessment Gait Gait Assistance Required: Contact Guard Assist Distance (Feet) 10 Assistive Devices Assistive Device Gait Belt Front Wheeled Walker Comments Gait Comments Pt was unsteady with gait. M5 PT-IP Objective Assessments Start: 05/05/18 08:08 Freq: NEEDED Status: Active Protocol: Document 05/05/18 09:56 RS (Rec: 05/05/18 10:21 RS [email or web address]) Orientation Orientation/Cognition Level of Alertness Alert Orientation Name Age Birthday Month Date Year Day of Week Place Situation Language Function Ability No Deficits Noted Safety Awareness Understands Safety Issues Memory Description No Deficits Noted Gross Range of Motion Upper Extremity ROM Assessment Within Functional Limits Lower Extremity ROM Assessment Within Functional Limits Strength Upper Extremity Strength Assessment Within Functional Limits Lower Extremity Strength Assessment Within Functional Limits M6 PT-IP Treatment Start: 05/05/18 08:08 Freq: NEEDED Status: Active Protocol: Document 05/08/18 11:00 GGD (Rec: 05/08/18 11:41 GGD [id number]) Physical Therapy Treatment Exercises Exercises Ankle Pumps Gluteal Sets Quad Sets M7 PT-IP Assessment and Plan Start: 05/05/18 08:08 Freq: NEEDED Status: Active Protocol: Document 05/08/18 11:00 GGD (Rec: 05/08/18 11:41 GGD [id number]) PT Summary Assessment and Plan Summary Assessment Summary Pt improved with mobility. She had less dizziness and no nausea with mobility. She was unsteady with gait and is a fall risk. Frequency of Treatment Frequency Of Treatment Twice a Day Treatment Plan Physical Therapy Treatment Plan Transfer Training Gait Training Balance Retraining Discharge Planning Recommendations To Nursing Amount of Assist Needed 1 Person Assist Discharge Recommendations PT Discharge Recommendations SNF Rehab
--- NOTE | 2018-05-08 11:07 | P.DS_ITS ---
History of Present Illness Date Patient Seen: 05/08/18 Time Patient Seen: 11:05 Chief complaint: dizziness, glf Narrative: 83-year-old female with a medical history of diastolic heart failure , persistent chronic AFib, hypertension, hyperlipidemia, chronic kidney disease 3 B, history of CVA presented to emergency department with dizziness for 1 month and a fall a day prior to admission. Patient denied any loss of consciousness or blurry vision but states she has been feeling dizziness for the past month on and off, aggravated by movement. She also complained of a little bit of nausea and dry heaving during the episodes of dizziness, but no overt vomiting. Denied any abdominal pain. Denied any symptoms. Denied any cough or shortness of breath. Discharge Providers Date of admission: 05/04/18 15:10 Primary care physician: Dejon Escalante MD Consults: 05/04/18 18:12 Consult to Dietitian, Adult Routine Comment: Reason For Exam: reports unexpected weight loss/assessed at risk Consult to Transit Bus Operator Routine Comment: 05/05/18 07:37 Consult to Physical Therapy Evaluate & Treat Comment: assess stephany for discharge in AM Today to home Physician Instructions: Evaluate and Treat 05/05/18 10:59 Consult to Home Health Routine Comment: include pt's daughter Joy [phone] in POC Reason For Exam: home health RN/OT/PT/ELL TUTOR at d/c 05/06/18 11:43 Consult to Occupational Therapy Evaluate & Treat Comment: Physician Instructions: Evaluate and treat Discharge provider: Annamarie Arellano MD Discharge Date: 05/08/18 Summary Discharge Diagnosis: Dizziness, likely related to AFib Afib Diastolic CHF, out of exacerbation CKD Stage III Hx Ischemic CVA UTI, finished treatment Nausea Hospital Course: On admission patient's vital signs were stable. Labs revealed BNP elevation in 1400 which seemed to be higher than her baseline. Patient was admitted, and her dizziness was attributed to medication use, versus AFib. Patient's Lasix 20 mg p.o. daily has been upped to 20 mg b.i.d.. Her lisinopril 5 mg daily has been changed to 2.5 mg p.o. b.i.d. Patient continued to have on and off dizziness throughout the hospital admission, and was noted to have heart rate increased to 130 while walking, which on EKG showed AFib with RVR. The rate would return back to baseline of 80-90 once patient went back to rest. We were unable to give patient any beta-viviane or calcium channel blockers due to borderline low blood pressure initially since patient was on lisinopril and increased Lasix. However on discharge we decreased lasix back to 20mg PO Daily and started metoprolol 12.5mg PO BID. Use of anticoagulation for AFib was discussed with patient and the family, who opted out for decision at a later date. Because patient continued to be weak and dizzy, as per Physical therapy and Occupational therapy recommendations, patient will be going to subacute rehab facility for strengthening. During the hospital admission, patient was also found to have UTI, which grew Klebsiella pneumoniae. Patient was initially started on Levaquin however titrated down to Bactrim. She received total of 4 days of treatment-will stop treatment today. Patient was also noted to have nausea during the hospital admission. We initially attributed to dizziness and atrial fibrillation, but has not improved much. We have then switched her Levaquin to Bactrim, which also has not improved her condition. We then gave her Maalox and got abdominal x-ray which came back as normal. Patient's condition subsequently improved on her own. Status at Discharge Functional status at discharge: uses cane/walker Overall status at discharge: patient is not back to baseline Time Spent with Patient Less than 30 minutes Exam Vital Signs (past 8 hours): - 05/08/18 07:58 05/08/18 08:12 Temperature 97.4 F L Pulse Rate 95 H Respiratory Rate 20 Blood Pressure 154/81 H Pulse Oximetry 94 94 Oxygen Delivery Method Room Air Oxygen Flow Rate 0 Narrative Exam Narrative: Exam Narrative: Exam Narrative: Gen: NAD, AAOx3 HEENT: PERRLA BL Neck: Supple, no LAD CV: Irregular rhythm, no murmur noted Resp: CTA BL, no wheezing or crackles GI: +BS, soft, nontender MSK: Normal ROM skin: 5in radius bruise on L buttock from previous fall Back: No point tenderness Neuro: NFD Psych: Slightly anxious, attention seeking Objective Labs Result Diagrams: 05/08/18 06:05 05/08/18 06:05 Labs: Laboratory Results - last 24 hr 05/08/18 05/08/18 06:05 06:05 WBC 5.3 RBC 3.05 L Hgb 9.7 L Hct 29.6 L MCV 97.0 MCH 31.7 MCHC 32.7 RDW 14.6 Plt Count 182 Neut % (Auto) 65.0 Lymph % (Auto) 17.4 L [place] % (Auto) 11.9 Eos % (Auto) 4.9 H Baso % (Auto) 0.8 Neut # (Auto) 3500 Sodium 134 L Potassium 5.2 H Chloride 100 Carbon Dioxide 24 BUN 59 H Creatinine 2.50 H Estimated GFR 18.3 L BUN/Creatinine Ratio 23.6 H Glucose 98 Calcium 9.8 Discharge Plan Discharge Plan Patient Disposition: Home Discharge Med Rec/Prescriptions Prescriptions: New lisinopril 5 mg Tablet 2.5 mg PO BID Qty: 60 RF: 6 furosemide [Lasix] 20 mg tablet 20 mg PO DAILY Qty: 30 RF: 0 metoprolol tartrate 25 mg tablet 12.5 mg PO BID Qty: 30 RF: 0 Continue acetaminophen [Tylenol] 325 mg Capsule 650 mg PO Q6H PRN (Reason: Pain, Mild) Qty: 0 RF: 0 atorvastatin 80 mg Tablet 80 mg PO BEDTIME RF: 0 gabapentin 600 mg Tablet 600 mg PO BEDTIME RF: 0 aspirin 81 mg Tablet,Delayed Release (Dr/Ec) 81 mg PO DAILY RF: 0 ascorbic acid (vitamin C) [Vitamin C] 500 mg Tablet 500 mg PO BID RF: 0 pantoprazole [Protonix] 40 mg Tablet,Delayed Release (Dr/Ec) 40 mg PO BID RF: 0 cyanocobalamin (vitamin B-12) [Vitamin B-12] 2,000 mcg Tablet Extended Release 2,000 mcg PO DAILY RF: 0 sertraline 50 mg Tablet 50 mg PO DAILY RF: 0 cholecalciferol (vitamin D3) [Vitamin D3] 2,000 unit Tablet 2,000 unit PO DAILY RF: 0 hydrocodone-acetaminophen 10-325 mg Tablet 1 tab PO QID PRN (Reason: Pain, Moderate) RF: 0 Discontinued furosemide 20 MG tablet 20 mg PO QAM Qty: 30 RF: 0 metoprolol tartrate 50 mg Tablet 50 mg PO BID RF: 0 lisinopril 5 mg Tablet 5 mg PO DAILY RF: 0 Follow up/Referrals: Dejon Escalante MD [Primary Care Provider] - 1 Week (appt:05/09 @ 1:45 check in for a 2:00 @ [facility] w/dr escalante (this is the only available he has at this time) ) Provider Discharge Instructions Diet: Diet as Tolerated, Regular, Low-sodium and Low-cholesterol Activity: with PT/OT Visit Report/Discharge Packet Instructions: Furosemide, Lisinopril Visit Report Forms: Congestive Heart Failure, Stroke Signs & Symptoms Discharge Data Primary Care Provider: Dejon Escalante V Attending Provider: Isidro Ozuna Admit Date/Time: 05/04/18 15:10 Quality VTE Deep Vein Thrombosis/Pulmonary Embolism Present on Admission: No
--- NOTE | 2018-05-08 11:29 | CM.DPC ---
DCP Cont: Patient is to be discharged today, and will be going to [facility]. Patient is aware, and called daughter, Joy, to give her an update. Yarely at [facility] is expecting her. Will call on a time. Also updated Melo as well. P: Patient is to be discharged to [facility] today. Lupe Vale RN/Quarter Trimmer
[2018-05-08 12:25] VITALS: BP 80/45; PULSE 93; RESP 18; TEMP 36.8; O2SAT 92
[2018-05-08 13:05] VITALS: BP 111/62
--- NOTE | 2018-05-08 13:58 | PC.NURSE ---
Discharge: Called report to Yarely at [facility], gave full pt status, answered all questions, pt is ready for discharge with all belongings when transport arrives.
== END 2018-05-08 13:25 | disposition home or self-care (01) ==
LOC: ED 12:04 → AC 15:11
PROVIDERS: Emergency Medicine; Internal Medicine; Admitting Provider Internal Medicine; Emergency Provider Nurse Practitioner Family; PCP Internal Medicine; Visit Provider Internal Medicine
DX: R42 Dizziness and giddiness (principal); R11.0 Nausea; I10 Essential (primary) hypertension; I50.30 Unspecified diastolic (congestive) heart failure; N18.3 Chronic kidney disease, stage 3 (moderate); E78.5 Hyperlipidemia, unspecified; I48.2 Chronic atrial fibrillation
CPT/HCPCS: 36415; 36591; 70450; 71045; 71046; 74018; 80048; 80053; 81001; 83735; 83880; 84145; 84484; 85025; 85610; 85730; 87077; 87086; 87186; 93005; 93010; 93041; 96374; 96375; 97110; 97116; 97162; 97167; 97530; 99283; 99285; G0378; J1644; J1940; J2405; J2765

== ENCOUNTER → 2018-05-13 19:29 | Outpatient (REF) | payer OTHER, SELFPAY ==
[2018-05-04 17:55] VITALS: BMI 27.6
[2018-05-13 19:32] LABS: RBC Urine None Seen (0-5/HPF)
[2018-05-13 20:25] LABS: Appearance Urine UA SL CLOUDY; Bilirubin Urine UA NEGATIVE (NEGATIVE); Color Urine UA YELLOW; Glucose Urine UA NEGATIVE (Normal); Ketones Urine UA NEGATIVE (NEGATIVE); Leukocyte Esterase Urine UA TRACE (NEGATIVE); Nitrite Urine UA NEGATIVE (Negative); Occult Blood Urine UA NEGATIVE (Negative); Protein Urine UA NEGATIVE (Negative); Urobilinogen Urine UA 0.2 E.U./dL (0.2)
[2018-05-13 20:41] LABS: Amorphous Sediment Urine 1+; Squamous Epithelial Cell Urine 1-5 /HPF; WBC Urine 1-5/HPF (0-5/HPF)
[2018-05-13 20:42] LABS: Bacteria Urine Few (2-10); Other Crystals Urine Other Crystals:
== END ==
LOC: LAB 19:29
PROVIDERS: PCP Internal Medicine; Visit Provider Hospitalist
DX: R30.0 Dysuria (principal)
CPT/HCPCS: 81001; 87086

== ENCOUNTER → 2018-05-16 08:07 | Outpatient (REF) | payer OTHER, SELFPAY ==
[2018-05-04 17:55] VITALS: BMI 27.6
[2018-05-16 08:46] LABS: Add Manual Diff / Slide Review NO; Basophils Percent Auto 0.6 % (0-2); Eosinophils Percent Auto 4.7 % (2-4); Hematocrit 26.8 % (36-46); Hemoglobin 8.8 g/dL (12.0-16.0); Lymphocytes Percent Auto 17.5 % (25-40); Mean Corpuscular HGB Conc 32.8 % (30-36); Mean Corpuscular Hemoglobin 31.9 PG (26-34); Mean Corpuscular Volume 97.3 fL (80-100); Monocytes Percent Auto 16.1 % (3-14); Neutrophils Absolute Auto 3300 /uL (3000-5900); Neutrophils Percent Auto 61.1 % (50-75); Platelet Count 225 X10^3/uL (150-400); Red Blood Cell Count 2.76 X10^6/uL (4.0-5.2); Red Cell Distribution Width 14.6 % (11.6-14.8); White Blood Cell Count 5.4 X10^3/uL (4.5-11.0)
[2018-05-16 09:18] LABS: Alanine Aminotransferase 20 IU/L (9-52); Albumin 3.4 g/dL (3.5-5.0); Albumin Globulin Ratio 1.2 (1.0-2.8); Alkaline Phosphatase 102 U/L (38-126); Aspartate Aminotransferase 25 IU/L (14-36); BUN Creatinine Ratio 38.5 (6-22); Bilirubin Total 0.4 mg/dL (0.2-1.3); Blood Urea Nitrogen 100 mg/dL (7-17); Calcium 9.9 mg/dL (8.4-10.2); Carbon Dioxide 21 mmol/L (22-32); Chloride 103 mmol/L (98-107); Estimated Glomerular Filt Rate 17.5 mL/min (>60); Globulin 2.9 g/dL (1.7-4.1); Glucose 84 mg/dL (80-110); HEMOLYSIS < 15 (0-50); Potassium 5.1 mmol/L (3.4-5.1); Sodium 140 mmol/L (137-145); Total Protein 6.3 g/dL (6.3-8.2)
== END ==
LOC: LAB 08:07
PROVIDERS: PCP Internal Medicine; Visit Provider Nurse Practitioner
DX: I12.9 Hypertensive chronic kidney disease with stage 1 through stage 4 chronic kidney disease, or unspecified chronic kidney disease (principal); I48.91 Unspecified atrial fibrillation
CPT/HCPCS: 36415; 80053; 85025

== ENCOUNTER → 2018-05-21 08:30 | Outpatient (REF) | payer OTHER, SELFPAY ==
[2018-05-04 17:55] VITALS: BMI 27.6
[2018-05-21 09:55] LABS: BUN Creatinine Ratio 31.1 (6-22); Blood Urea Nitrogen 56 mg/dL (7-17); Calcium 9.6 mg/dL (8.4-10.2); Carbon Dioxide 19 mmol/L (22-32); Chloride 109 mmol/L (98-107); Estimated Glomerular Filt Rate 26.8 mL/min (>60); Glucose 72 mg/dL (80-110); HEMOLYSIS < 15 (0-50); Potassium 5.3 mmol/L (3.4-5.1); Sodium 140 mmol/L (137-145)
== END ==
LOC: LAB 08:30
PROVIDERS: PCP Internal Medicine; Visit Provider Nurse Practitioner
DX: N18.9 Chronic kidney disease, unspecified (principal); I50.9 Heart failure, unspecified
CPT/HCPCS: 36415; 80048

== ENCOUNTER → 2018-05-26 08:26 | Outpatient (REF) | payer OTHER, SELFPAY ==
[2018-05-04 17:55] VITALS: BMI 27.6
[2018-05-26 09:20] LABS: BUN Creatinine Ratio 28.2 (6-22); Blood Urea Nitrogen 48 mg/dL (7-17); Calcium 9.9 mg/dL (8.4-10.2); Carbon Dioxide 20 mmol/L (22-32); Chloride 110 mmol/L (98-107); Estimated Glomerular Filt Rate 28.6 mL/min (>60); Glucose 104 mg/dL (80-110); HEMOLYSIS < 15 (0-50); Potassium 4.9 mmol/L (3.4-5.1); Sodium 142 mmol/L (137-145)
== END ==
LOC: LAB 08:26
PROVIDERS: PCP Internal Medicine; Visit Provider Nurse Practitioner
DX: I10 Essential (primary) hypertension (principal)
CPT/HCPCS: 36415; 80048

== ENCOUNTER → 2018-10-29 15:26 | Outpatient (CLI) | payer OTHER, SELFPAY ==
[2018-05-04 17:55] VITALS: BMI 27.6
--- NOTE | 2018-10-29 | DI.RAD.S_ITS ---
PROCEDURE: XR ANKLE LT MIN 3V INDICATIONS: LEFT ANKLE PAIN TECHNIQUE: 3 views of the ankle were acquired. COMPARISON: None. FINDINGS: Bones: No fractures or dislocations. Ankle mortise is normally aligned. No suspicious bony lesions. Soft tissues: No tibiotalar joint effusion. Achilles tendon appears normal. Small vessel calcifications are present across the distal calf area, consistent with long-standing diabetes. Source of persistent pain after trauma approximately one year ago is not seen. IMPRESSION: Small vessel calcifications as discussed, no trauma to the osseous structures is found. Dictated by: Henrán Aguilar M.D. on 10/29/2018 at 16:09 Approved by: Hernán Aguilar M.D. on 10/29/2018 at 16:10
== END ==
PROVIDERS: PCP Internal Medicine; Visit Provider Internal Medicine
DX: M25.572 Pain in left ankle and joints of left foot (principal)
CPT/HCPCS: 73610

== ENCOUNTER 2019-01-17 12:59 | Emergency (ER) | payer OTHER, SELFPAY ==
[2018-05-04 17:55] VITALS: BMI 27.6
[2019-01-17] VITALS (9 sets, daily range): BP systolic 157–189; BP diastolic 67–89; PULSE 15–84; RESP 11–18; TEMP 36.6–37.2; O2SAT 94–99; BMI 22.6
--- NOTE | 2019-01-17 13:25 | DI.CT.S_ITS ---
PROCEDURE: CT ABDOMEN PELVIS WO CON INDICATIONS: abdominal pain mass in lower ab is felt TECHNIQUE: Noncontrast 5 mm thick sections acquired from the diaphragms to the symphysis. 5 mm coronal and sagittal reformats were then performed. For radiation dose reduction, the following was used: automated exposure control, adjustment of mA and/or kV according to patient size. COMPARISON: [facility], CT, PE STUDY (CTA CHEST), 06/14/2014, 14:14. FINDINGS: Image quality: Diagnostic. ABDOMEN: Lung bases: There may be chronic interstitial changes within the lung bases versus scarring/atelectasis. Heart size is normal. Solid organs: A the liver is normal in size. The patient has had a prior cholecystectomy. The common bile duct is markedly dilated, measuring up to 1.5 cm. No definite intrahepatic biliary dilatation is evident. There may be a small filling defect within the distal aspect of the common bile duct measuring approximately 2 mm (image 25, series 2). A small calcified granuloma within the liver is present. There may be calcified granulomas within the spleen. The adrenals and pancreas appear to be within normal limits. The kidneys are somewhat small in size. However, there is no hydronephrosis or nephrolithiasis. Peritoneum and bowel: There is a small hiatal hernia. The stomach is otherwise unremarkable. The small bowel loops are nondilated. Fluid is seen within the colon. There is distal colonic diverticulosis without convincing findings of acute diverticulitis. Mild edema within the mesentery is present. No drainable or loculated fluid collection is identified. There is no definite free air. Nodes and vessels: No retroperitoneal or mesenteric adenopathy by size criteria. Aorta and inferior vena cava are normal in caliber. 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 Bones: No acute fracture or dislocation is evident. No suspicious osseous lesions are identified. Severe multilevel degenerative changes of the spine are present. There is prominent levoscoliosis. PELVIS: Genitourinary: There is a Snyder catheter identified within the urinary bladder with a moderate amount of residual urine contained within the bladder. Miscellaneous: No inguinal hernias or adenopathy. No free fluid or loculated fluid collection is appreciated. Bones: No suspicious bony lesions. No acute pelvic fractures are identified. There are moderate degenerative changes of the bilateral sacroiliac joints and mild degenerative changes of the bilateral hips. IMPRESSION: 1. No evidence of an abdominal or pelvic mass. 2. Fluid within the colon may be related to diarrhea. 3. Nonspecific edema within the mesentery could potentially be related to a cardiogenic process. Please correlate clinically to exclude acute inflammation. 4. Prominent dilatation of the common bile duct may be related to previous cholecystectomy. However, there is suggestion of choledocholithiasis within the distal aspect of the duct. The need for confirmation utilizing MRCP may be determined clinically. 5. Severe atherosclerosis of the arteries of the abdomen and pelvis. 6. Snyder catheter within the bladder with moderate residual urine. Please correlate clinically to ensure that the Snyder catheter is functioning properly. 7. Colonic diverticulosis without diverticulitis. Dictated by: Liborio Villlea M.D. on 01/17/2019 at 13:49 Approved by: Liborio Villela M.D. on 01/17/2019 at 13:56
[2019-01-17] MEDS: MORPHINE 2 MG/ML INJ IV ×2 (13:35→17:48)
[2019-01-17] MEDS: SODIUM CHLORIDE 0.9% 1,000 ML 150 ML IV (13:35)
[2019-01-17 13:55] LABS: Add Manual Diff / Slide Review NO; Basophils Absolute Auto 0 /uL (0-100); Basophils Percent Auto 0.4 % (0-2); Eosinophils Absolute Auto 0 /uL (0-450); Eosinophils Percent Auto 0.4 % (2-4); Hematocrit 36.8 % (36-46); Hemoglobin 12.3 g/dL (12.0-16.0); Lymphocytes Absolute Auto 500 /uL (1100-4500); Lymphocytes Percent Auto 5.3 % (25-40); Mean Corpuscular HGB Conc 33.5 % (30-36); Mean Corpuscular Hemoglobin 32.8 PG (26-34); Monocytes Absolute Auto 400 /uL (0-900); Monocytes Percent Auto 4.4 % (3-14); Neutrophils Absolute Auto 7800 /uL (1500-7000); Neutrophils Percent Auto 89.5 % (50-75); Platelet Count 278 X10^3/uL (150-400); Red Blood Cell Count 3.76 X10^6/uL (4.0-5.2); Red Cell Distribution Width 13.8 % (11.6-14.8); White Blood Cell Count 8.8 X10^3/uL (4.5-11.0)
[2019-01-17 14:07] LABS: Alanine Aminotransferase 11 IU/L (9-52); Albumin 3.9 g/dL (3.5-5.0); Albumin Globulin Ratio 1.2 (1.0-2.8); Alkaline Phosphatase 123 U/L (38-126); Aspartate Aminotransferase 13 IU/L (14-36); BUN Creatinine Ratio 24.3 (6-22); Bilirubin Total 0.7 mg/dL (0.2-1.3); Blood Urea Nitrogen 73 mg/dL (7-17); Calcium 10.3 mg/dL (8.4-10.2); Carbon Dioxide 18 mmol/L (22-32); Chloride 100 mmol/L (98-107); Estimated Glomerular Filt Rate 14.9 mL/min (>60); Globulin 3.3 g/dL (1.7-4.1); Glucose 102 mg/dL (80-110); HEMOLYSIS < 15 (0-50); Lipase 160 U/L (23-300); Potassium 2.9 mmol/L (3.4-5.1); Sodium 140 mmol/L (137-145); Total Protein 7.2 g/dL (6.3-8.2)
--- NOTE | 2019-01-17 14:10 | ED.ABDPAIN ---
HPI - Abdominal Pain General Chief Complaint: Abdominal Pain Stated Complaint: Weakness Time Seen by Provider: 01/17/19 13:18 Source: patient and EMS Mode of arrival: EMS Limitations: altered mental status History of Present Illness HPI narrative: Patient is an 83-year-old female who presents with abdominal pain and weakness and nausea. She does have lower abdominal mass that is noted. She actually herself is a very poor historian. She denies any chest pain or heart palpitations despite having known atrial fibrillation. Rate seems to be controlled. She is not in any sort of respiratory distress. Related Data Home Medications Medication Instructions Recorded Confirmed acetaminophen [Tylenol] 650 mg PO Q6H PRN #0 02/11/17 05/04/18 ascorbic acid (vitamin C) [Vitamin 500 mg PO BID 05/04/18 05/04/18 C] aspirin 81 mg PO DAILY 05/04/18 05/04/18 atorvastatin 80 mg PO BEDTIME 05/04/18 05/04/18 cholecalciferol (vitamin D3) 2,000 unit PO DAILY 05/04/18 05/04/18 [Vitamin D3] cyanocobalamin (vitamin B-12) 2,000 mcg PO DAILY 05/04/18 05/04/18 [Vitamin B-12] gabapentin 600 mg PO BEDTIME 05/04/18 05/04/18 pantoprazole [Protonix] 40 mg PO BID 05/04/18 05/04/18 sertraline 50 mg PO DAILY 05/04/18 05/04/18 Previous Rx's Medication Instructions Recorded lisinopril 2.5 mg PO BID #60 tab 05/05/18 furosemide [Lasix] 20 mg PO DAILY #30 tab 05/08/18 hydrocodone-acetaminophen 1 tab PO QID PRN #30 tab 05/08/18 metoprolol tartrate 12.5 mg PO BID #30 tab 05/08/18 Allergies Allergy/AdvReac Type Severity Reaction Status Date / Time oxycodone [OXYCODONE] Allergy Intermediate DIZZINESS Verified 01/17/19 13:29 Review of Systems Review of Systems ROS Unobtainable: All systems reviewed & are unremarkable except as noted in HPI and below Constitutional Denies chills, Denies fever(s), Denies lethargy and Reports weakness Eyes Denies change in vision, Denies eye discharge, Denies irritation and Denies loss of vision Cardiovascular Denies chest pain, Reports irregular heart rhythm (Atrial fibrillation), Denies lightheadedness, Denies palpitations, Denies dyspnea and Denies orthopnea Respiratory Denies cough and Denies dyspnea Gastrointestinal Gastrointestinal: Denies abdominal pain, Denies nausea and Denies vomiting Genitourinary Denies urinary frequency and Denies post void dribbling Musculoskeletal Denies back pain, Denies muscle weakness, Denies numbness and Denies tingling Integumentary/Breasts Denies pruritus, Denies erythema, Denies rash and Denies wounds Neurologic Denies loss of vision, Denies numbness, Denies tingling and Reports weakness Endocrine Denies palpitations [facility] Medical History Afib (Acute) CAD (coronary artery disease) (Acute) CHF (congestive heart failure) (Acute) CKD (chronic kidney disease) (Acute) CVA (cerebral vascular accident) (Acute) HTN (hypertension) (Acute) History of hysterectomy (Acute) Hyperlipidemia (Acute) Surgical History History of bilateral knee replacement (Acute) History of tonsillectomy (Acute) Previous back surgery (Acute) Social History household members: none Smoking Status: Never smoker alcohol intake: never Social History household members: none Smoking Status: Never smoker alcohol intake: never Exam Initial Vital Signs Initial Vital Signs: Vital Signs Temperature 97.9 F 01/17/19 13:09 Pulse Rate 62 01/17/19 13:09 Respiratory Rate 18 01/17/19 13:09 Blood Pressure 189/89 H 01/17/19 13:09 Pulse Oximetry 94 01/17/19 13:09 GENERAL: Pleasantly confused elderly female no acute distress. HEENT: Head atraumatic,EOMI, pupils reactive, CARDIOVASCULAR: Regular rate and rhythm without murmurs, rubs or gallops. RESPIRATORY: Breath sounds equal bilaterally, no wheezes rales or rhonchi. ABDOMEN: Soft, hard mass felt centrally located suprapubic area presumed to be probable bladder. Rest of abdomen is soft nontender EXTREMITIES: Normal range of motion, no clubbing or edema. Neurovascularly intact NEUROLOGICAL: Keg Raiser strength equal bilaterally SKIN: Warm, dry, no laceration, no petechiae, no rashes or lesions. Course Orders Ordered: ED Orders 01/17/19 13:25 CT abdomen pelvis wo con Stat 01/17/19 13:28 EKG-12 Lead Stat 01/17/19 13:45 Complete Blood Count AUTO DIFF Stat Comprehensive Metabolic Panel Stat Lipase Stat 01/17/19 15:30 Urinalysis and Microscopic Stat Urine Culture Stat Discontinued Medications Sodium Chloride (Normal Saline 0.9%) 1,000 mls @ 150 mls/hr IV CONT WYATT Last Infusion: 01/17/19 17:54 Dose: 0 mls/hr Admin: 01/17/19 13:35 Dose: 150 mls/hr Sodium Chloride (Normal Saline 0.9%) 1,000 mls @ 1,000 mls/hr IV BOLUS ONE Stop: 01/17/19 15:09 Last Infusion: 01/17/19 15:36 Dose: 0 mls/hr Admin: 01/17/19 14:45 Dose: 1,000 mls/hr Morphine Sulfate (Morphine) 2 mg IV NOW ONE Stop: 01/17/19 13:26 Last Admin: 01/17/19 13:35 Dose: 2 mg Morphine Sulfate (Morphine) 2 mg IV NOW ONE Stop: 01/17/19 17:42 Last Admin: 01/17/19 17:48 Dose: 2 mg Ondansetron HCl (Zofran) 4 mg IV NOW ONE Stop: 01/17/19 17:42 Last Admin: 01/17/19 17:48 Dose: 4 mg Potassium Chloride (Potassium Chloride) 40 meq PO NOW ONE Stop: 01/17/19 16:51 Last Admin: 01/17/19 17:14 Dose: 40 meq Consultations Time: 15:13 Vital Signs - 8 hr 01/17/19 13:09 01/17/19 13:30 01/17/19 14:00 Temperature 97.9 F Pulse Rate 62 75 72 Respiratory Rate 18 18 12 Blood Pressure 189/89 H Blood Pressure [Left Arm] 179/71 H 184/81 H Pulse Oximetry 94 99 01/17/19 14:40 01/17/19 15:30 01/17/19 16:00 Temperature 98.6 F Pulse Rate 70 84 64 Respiratory Rate 12 14 18 Blood Pressure Blood Pressure [Left Arm] 157/75 H 179/81 H 177/71 H Pulse Oximetry 97 98 01/17/19 16:30 01/17/19 17:00 01/17/19 17:35 Temperature 99.0 F Pulse Rate 75 74 15 L Respiratory Rate 14 11 L 15 Blood Pressure Blood Pressure [Left Arm] 171/67 H 165/77 H 181/82 H Pulse Oximetry 98 97 98 MDM - Abdominal Pain Lab Data Attestation: I reviewed the patient's lab results. Result diagrams: 01/17/19 13:45 01/17/19 13:45 Lab Results 01/17/19 01/17/19 01/17/19 Range/Units 13:45 13:45 15:30 WBC 8.8 (4.5-11.0) X10^3/uL RBC 3.76 L (4.0-5.2) X10^6/uL Hgb 12.3 (12.0-16.0) g/dL Hct 36.8 (36-46) % MCV 98.0 (80-100) fL MCH 32.8 (26-34) PG MCHC 33.5 (30-36) % RDW 13.8 (11.6-14.8) % Plt Count 278 (150-400) X10^3/uL Neut % (Auto) 89.5 H (50-75) % Lymph % (Auto) 5.3 L (25-40) % Pratt % (Auto) 4.4 (3-14) % Eos % (Auto) 0.4 L (2-4) % Baso % (Auto) 0.4 (0-2) % Neut # (Auto) 7800 H (6230-1571) /uL Lymph # (Auto) 500 L (6091-4164) /uL Pratt # (Auto) 400 (0-900) /uL Eos # (Auto) 0 (0-450) /uL Baso # (Auto) 0 (0-100) /uL Sodium 140 (137-145) mmol/L Potassium 2.9 L (3.4-5.1) mmol/L Chloride 100 (98-107) mmol/L Carbon Dioxide 18 L (22-32) mmol/L BUN 73 H (7-17) mg/dL Creatinine 3.00 H (0.52-1.04) mg/dL Estimated GFR 14.9 L (>60) mL/min BUN/Creatinine Ratio 24.3 H (6-22) Glucose 102 (80-110) mg/dL Calcium 10.3 H (8.4-10.2) mg/dL Total Bilirubin 0.7 (0.2-1.3) mg/dL AST 13 L (14-36) IU/L ALT 11 (9-52) IU/L Alkaline Phosphatase 123 (38-126) U/L Total Protein 7.2 (6.3-8.2) g/dL Albumin 3.9 (3.5-5.0) g/dL Globulin 3.3 (1.7-4.1) g/dL Albumin/Globulin Ratio 1.2 (1.0-2.8) Lipase 160 (23-300) U/L Urine Color Yellow Urine Appearance Clear Urine pH 5.0 (4.5-8.0) Ur Specific [place] 1.015 (1.000-1.035) Urine Protein Trace H (Negative) Urine Glucose (UA) Negative (Negative) g/dL Urine Ketones Negative (NEGATIVE) Urine Occult Blood Negative (Negative) Urine Nitrate Negative (Negative) Urine Bilirubin Negative (NEGATIVE) Urine Urobilinogen 0.2 (0.2) E.U./dL Ur Leukocyte Esterase Trace H (NEGATIVE) Urine RBC 0-1/hpf (0-5/HPF) Urine WBC 0-1/hpf (0-5/HPF) Ur Squamous Epith Cells 0-1 /hpf (0-5/HPF) Urine Bacteria Many (>30) H (None) Ur Culture Indicated? Specimen cultured Imaging Data CT scan - abdomen: Radiologist's impression: PROCEDURE: CT ABDOMEN PELVIS WO CON INDICATIONS: abdominal pain mass in lower ab is felt TECHNIQUE: Noncontrast 5 mm thick sections acquired from the diaphragms to the symphysis. 5 mm coronal and sagittal reformats were then performed. For radiation dose reduction, the following was used: automated exposure control, adjustment of mA and/or kV according to patient size. COMPARISON: [facility], CT, PE STUDY (CTA CHEST), 06/14/2014, 14:14. FINDINGS: Image quality: Diagnostic. ABDOMEN: Lung bases: There may be chronic interstitial changes within the lung bases versus scarring/atelectasis. Heart size is normal. Solid organs: A the liver is normal in size. The patient has had a prior cholecystectomy. The common bile duct is markedly dilated, measuring up to 1.5 cm. No definite intrahepatic biliary dilatation is evident. There may be a small filling defect within the distal aspect of the common bile duct measuring approximately 2 mm (image 25, series 2). A small calcified granuloma within the liver is present. There may be calcified granulomas within the spleen. The adrenals and pancreas appear to be within normal limits. The kidneys are somewhat small in size. However, there is no hydronephrosis or nephrolithiasis. Peritoneum and bowel: There is a small hiatal hernia. The stomach is otherwise unremarkable. The small bowel loops are nondilated. Fluid is seen within the colon. There is distal colonic diverticulosis without convincing findings of acute diverticulitis. Mild edema within the mesentery is present. No drainable or loculated fluid collection is identified. There is no definite free air. Nodes and vessels: No retroperitoneal or mesenteric adenopathy by size criteria. Aorta and inferior vena cava are normal in caliber. 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 Bones: No acute fracture or dislocation is evident. No suspicious osseous lesions are identified. Severe multilevel degenerative changes of the spine are present. There is prominent levoscoliosis. PELVIS: Genitourinary: There is a Snyder catheter identified within the urinary bladder with a moderate amount of residual urine contained within the bladder. Miscellaneous: No inguinal hernias or adenopathy. No free fluid or loculated fluid collection is appreciated. Bones: No suspicious bony lesions. No acute pelvic fractures are identified. There are moderate degenerative changes of the bilateral sacroiliac joints and mild degenerative changes of the bilateral hips. IMPRESSION: 1. No evidence of an abdominal or pelvic mass. 2. Fluid within the colon may be related to diarrhea. 3. Nonspecific edema within the mesentery could potentially be related to a cardiogenic process. Please correlate clinically to exclude acute inflammation. 4. Prominent dilatation of the common bile duct may be related to previous cholecystectomy. However, there is suggestion of choledocholithiasis within the distal aspect of the duct. The need for confirmation utilizing MRCP may be determined clinically. 5. Severe atherosclerosis of the arteries of the abdomen and pelvis. 6. Snyder catheter within the bladder with moderate residual urine. Please correlate clinically to ensure that the Snyder catheter is functioning properly. 7. Colonic diverticulosis without diverticulitis. Dictated by: Liborio Villela M.D. on 01/17/2019 at 13:49 ECG Data Attestation: I personally reviewed and interpreted this ECG as follows: Prior ECG tracings: available for review Interpretation: AFib bigeminy rate 70 a different from previous EKG in April 2018 MDM Narrative Medical decision making narrative: The Snyder catheter initially placed prior to CT. There was not significant drainage bladder scan was not accurate. CT does show distended bladder with Snyder catheter placement. No other abnormality. She does have significant rise in her creatinine. She has had a creatinine of 2.0 in the past it seems that her baseline is around they are ranging from 1.7-2.6. She cannot remember she has had urinary retention in the past. Her daughter states that she does have renal disease unsure what stage. I spoke with Dr. Jacome, recommended that due to increased renal function and urinary retention needed summer with Urology and Nephrology. Patient is a [facility] patient Dr. Palumbo, agrees with transfer. Dr Bhat I did speak with her daughter who is currently out of town all and I updated her on test results and need for transfer. At this time I do not think dialysis this is emergent. Will likely need evaluation hopefully this is from obstructive uropathy on underlying kidney disease. Potassium also noted to be slightly decreased. Patient has had total of 300mL, patient still seems to be in significant amount of pain holding her lower abdomen. Mass and fullness felt prior is now gone. Discharge Plan Departure Patient Disposition: [facility] Clinical Impression: Acute kidney injury superimposed on chronic kidney disease, Acute urinary retention, Acute hypokalemia Discharge Date/Time: 01/17/19 18:10 Interventions: ED Discharge Assessment Last Done: 01/17/19 18:10 Prescriptions: No Action acetaminophen [Tylenol] 325 mg Capsule 650 mg PO Q6H PRN (Reason: Pain, Mild) Qty: 0 RF: 0 atorvastatin 80 mg Tablet 80 mg PO BEDTIME RF: 0 gabapentin 600 mg Tablet 600 mg PO BEDTIME RF: 0 aspirin 81 mg Tablet,Delayed Release (Dr/Ec) 81 mg PO DAILY RF: 0 ascorbic acid (vitamin C) [Vitamin C] 500 mg Tablet 500 mg PO BID RF: 0 pantoprazole [Protonix] 40 mg Tablet,Delayed Release (Dr/Ec) 40 mg PO BID RF: 0 cyanocobalamin (vitamin B-12) [Vitamin B-12] 2,000 mcg Tablet Extended Release 2,000 mcg PO DAILY RF: 0 sertraline 50 mg Tablet 50 mg PO DAILY RF: 0 cholecalciferol (vitamin D3) [Vitamin D3] 2,000 unit Tablet 2,000 unit PO DAILY RF: 0 lisinopril 5 mg Tablet 2.5 mg PO BID Qty: 60 RF: 6 furosemide [Lasix] 20 mg tablet 20 mg PO DAILY Qty: 30 RF: 0 metoprolol tartrate 25 mg tablet 12.5 mg PO BID Qty: 30 RF: 0 hydrocodone-acetaminophen 10-325 mg Tablet 1 tab PO QID PRN (Reason: Pain, Moderate) Qty: 30 RF: 0 Referrals: Dejon Tobar MD [Primary Care Provider] -
[2019-01-17] MEDS: SODIUM CHLORIDE 0.9% 1,000 ML 1000 ML IV (14:45)
[2019-01-17 15:52] LABS: Appearance Urine UA CLEAR; Bilirubin Urine UA NEGATIVE (NEGATIVE); Color Urine UA YELLOW; Glucose Urine UA NEGATIVE (Negative); Ketones Urine UA NEGATIVE (NEGATIVE); Leukocyte Esterase Urine UA TRACE (NEGATIVE); Nitrite Urine UA NEGATIVE (Negative); Occult Blood Urine UA NEGATIVE (Negative); Protein Urine UA TRACE (Negative); Specific Gravity Urine UA 1.015 (1.000-1.035); Urobilinogen Urine UA 0.2 E.U./dL (0.2)
[2019-01-17 16:04] LABS: Bacteria Urine Many (>30); Culture Indicated Urine Specimen Cultured; RBC Urine 0-1/HPF (0-5/HPF); Squamous Epithelial Cell Urine 0-1 /HPF (0-5/HPF); WBC Urine 0-1/HPF (0-5/HPF)
[2019-01-17] MEDS: POTASSIUM CHLORIDE 20 MEQ/15 ML UDC 40 MEQ PO (17:14)
[2019-01-17] MEDS: ONDANSETRON 4 MG/2 ML INJ IV (17:48)
== END 2019-01-17 18:10 | disposition short-term general hospital (02) ==
PROVIDERS: Emergency Provider Emergency Medicine; PCP Internal Medicine
DX: N17.9 Acute kidney failure, unspecified (principal); R33.8 Other retention of urine; E87.6 Hypokalemia; I50.9 Heart failure, unspecified
CPT/HCPCS: 36415; 51701; 74176; 80053; 81001; 83690; 85025; 87077; 87086; 87186; 93005; 93010; 96361; 96374; 96375; 96376; 99285; J2270; J2405